=== PATIENT | female | born 1945 | race Caucasian/White ===

== ENCOUNTER 2018-06-11 23:43 | Inpatient (IN) ==
[2018-06-12] MEDS ORDERED: hydrALAZINE 20 MG/1 ML VIAL ONE (00:06)
[2018-06-12] MEDS ORDERED: LEVALBUTEROL 1.25 MG/3 ML NEB RESP TX STA (00:06)
[2018-06-12 00:38] LABS: Basophils # 0.1 10*3/uL (0.0-0.2); Basophils % 0.8 % (0.0-0.8); Eosinophils # 0.3 10*3/uL (0.0-0.87); Eosinophils % 2.5 % (0.00-10.9); Immature Granulocytes % 1.1 %; Immature Granulocytes Absolute 0.14 #; Lymphocytes # 2.8 10*3/uL (1.4-4.0); Lymphocytes % 21.6 % (21.3-54.2); Mean Corpuscular HGB Conc 31.7 GM/DL (32-36); Mean Corpuscular Hemoglobin 28 PG (27-34); Mean Corpuscular Volume 89.7 FL (87-102); Mean Platelet Volume 10.5 FL (9.6-12.0); Monocytes # 0.7 10*3/uL (0.11-0.8); Monocytes % 5.6 % (1.7-12.7); Neutrophils # 8.8 10*3/uL (1.4-7.4); Neutrophils % 68.4 % (38.7-73.9); Platelet Count 281 T/CUMM (130-400); Red Blood Count 4.57 MC/CUMM (3.8-5.5); White Blood Count 12.9 T/CUMM (4-12)
[2018-06-12 00:44] LABS: Alanine Aminotransferase 23 U/L (13-56); Albumin 3.5 G/DL (3.4-5.0); Alkaline Phosphatase 174 U/L (45-117); Aspartate Amino Transferase 20 U/L (0-37); Bilirubin,Total < 0.39 MG/DL (0.2-1.0); Blood Urea Nitrogen 15 MG/DL (7-18); Calcium 9.1 MG/DL (8.5-10.1); Glucose 113 MG/DL (74-106); Osmolality,Calculated 276.7 MOS/KG (273-304); Potassium 3.6 MMOL/L (3.5-5.1); Sodium 138 MMOL/L (136-145); Total Protein 8.2 G/DL (6.4-8.3); Troponin I < 0.015 NG/ML (0.00-0.045)
[2018-06-12] MEDS ORDERED: levETIRAcetam 500 MG/5 ML VIAL IV ONE (00:50)
[2018-06-12] MEDS ORDERED: hydrALAZINE 20 MG/1 ML VIAL IV STA (00:51)
[2018-06-12 01:01] LABS: Apearance,Urine CLEAR (Clear); Bilirubin,Urine Negative (Negative); Blood, Urine Negative (Negative); Glucose,Urine (UA) Negative (Negative); Hyaline Casts,Urine 1 /LPF (0-3); Ketones,Urine Negative (Negative); Nitrite,Urine Negative (Negative); Protein,Urine 100 MG/DL; RBC,Urine 1 /HPF (0-4); Squamous Epithelial Cell,Urine Occasional /HPF (0-10); Urine Color Straw (Yellow); Urine Specific Gravity 1.008 (1.001-1.035); Urine Urobilinogen < 2.0 EU/DL (0.2-1.0); WBC,Urine 3 /HPF (0-6)
[2018-06-12 01:05] LABS: Barbiturates Screen,Urine Negative (Negative); Benzodiazepines Screen,Urine Negative (Negative); Cannabinoid Screen,Urine Negative (Negative); Opiate Screen,Urine Negative (Negative); Phencyclidine Screen,Urine Negative (Negative)
[2018-06-12] MEDS ORDERED: methylPREDNISolone SOD SUC 40 MG/1 ML VIAL IV SCH (02:05)
[2018-06-12] MEDS ORDERED: ONDANSETRON 4 MG/2 ML VIAL IV PRN (02:05)
[2018-06-12] MEDS ORDERED: hydrALAZINE 20 MG/1 ML VIAL IV PRN (02:05)
[2018-06-12] MEDS ORDERED: ACETAMINOPHEN 325 MG TABLET PO PRN (02:05)
[2018-06-12] MEDS: SODIUM CHLORIDE 0.9% 1,000 ML IV SCH (03:22)
[2018-06-12] MEDS: ALBUTEROL/IPRATROPIUM 3 ML NEB RESP TX SCH ×6 (03:42→22:44)
[2018-06-12 04:29] LABS: Basophils # 0.1 10*3/uL (0.0-0.2); Basophils % 0.5 % (0.0-0.8); Eosinophils % 0.3 % (0.00-10.9); Hematocrit 36.1 VOL% (35.7-47.0); Hemoglobin 11.7 GM/DL (12.0-16.0); Immature Granulocytes % 0.4 %; Immature Granulocytes Absolute 0.05 #; Lymphocytes # 1.4 10*3/uL (1.4-4.0); Lymphocytes % 11.4 % (21.3-54.2); Mean Corpuscular HGB Conc 32.4 GM/DL (32-36); Mean Corpuscular Hemoglobin 28 PG (27-34); Mean Corpuscular Volume 87.6 FL (87-102); Mean Platelet Volume 10.2 FL (9.6-12.0); Monocytes # 0.3 10*3/uL (0.11-0.8); Monocytes % 2.7 % (1.7-12.7); Neutrophils # 10.5 10*3/uL (1.4-7.4); Neutrophils % 84.7 % (38.7-73.9); Platelet Count 253 T/CUMM (130-400); Red Blood Count 4.12 MC/CUMM (3.8-5.5); Red Cell Distribution Width 13.1 % (9.3-17.3); White Blood Count 12.4 T/CUMM (4-12)
[2018-06-12 04:59] LABS: Troponin I 0.027 NG/ML (0.00-0.045)
[2018-06-12 05:03] LABS: Albumin 3.1 G/DL (3.4-5.0); Bilirubin,Total 0.6 MG/DL (0.2-1.0); Calcium 8.8 MG/DL (8.5-10.1); Osmolality,Calculated 278.5 MOS/KG (273-304); Potassium 3.4 MMOL/L (3.5-5.1); Risk Ratio 3.26; Total Protein 7.1 G/DL (6.4-8.3); VLDL CHOLESTEROL 13.2 MG/DL
[2018-06-12] MEDS: ENOXAPARIN 40 MG/0.4 ML SYRINGE SUBCUT SCH (08:28)
[2018-06-12] MEDS: DOCUSATE SODIUM 100 MG CAPSULE PO SCH ×2 (08:28→22:20)
[2018-06-12] MEDS: PANTOPRAZOLE 40 MG TABLET PO SCH (08:28)
[2018-06-12] MEDS: SERTRALINE 100 MG TABLET PO SCH (08:55)
[2018-06-12] MEDS: MAGNESIUM CHLORIDE 64 MG TABLET PO SCH (08:56)
[2018-06-12] MEDS: levETIRAcetam 500 MG TABLET PO SCH ×2 (08:56→22:20)
[2018-06-12] MEDS: TOPIRAMATE 100 MG TABLET PO SCH ×2 (08:56→22:25)
[2018-06-12] MEDS: METOPROLOL TARTRATE 50 MG TABLET PO SCH ×2 (08:56→22:20)
[2018-06-12] MEDS: SIMVASTATIN 20 MG TABLET PO SCH (08:57)
[2018-06-12] MEDS: lamoTRIgine 100 MG TABLET PO SCH ×2 (08:57→22:20)
[2018-06-12] MEDS ORDERED: VALSARTAN 160 MG TABLET PO SCH (09:00)
[2018-06-12] MEDS ORDERED: traMADol 50 MG TABLET PO PRN (11:55)
[2018-06-12 13:05] LABS: Prolactin 21.6 NG/ML
[2018-06-12] MEDS: methylPREDNISolone SOD SUC 40 MG/1 ML VIAL IV SCH (15:26)
[2018-06-12] MEDS ORDERED: ARIPiprazole 10 MG TABLET PO SCH (21:00)
[2018-06-13] MEDS: ALBUTEROL/IPRATROPIUM 3 ML NEB RESP TX SCH ×3 (02:20→11:10)
[2018-06-13] MEDS: methylPREDNISolone SOD SUC 40 MG/1 ML VIAL IV SCH (02:41)
[2018-06-13] MEDS: SODIUM CHLORIDE 0.9% 1,000 ML IV SCH (02:41)
[2018-06-13 06:21] LABS: Basophils % 0.2 % (0.0-0.8); Eosinophils % 0.1 % (0.00-10.9); Hematocrit 35.7 VOL% (35.7-47.0); Hemoglobin 11.2 GM/DL (12.0-16.0); Immature Granulocytes % 0.6 %; Immature Granulocytes Absolute 0.05 #; Lymphocytes % 11.7 % (21.3-54.2); Mean Corpuscular HGB Conc 31.4 GM/DL (32-36); Mean Corpuscular Hemoglobin 28 PG (27-34); Mean Corpuscular Volume 90.4 FL (87-102); Mean Platelet Volume 10.5 FL (9.6-12.0); Monocytes # 0.3 10*3/uL (0.11-0.8); Monocytes % 3.1 % (1.7-12.7); Neutrophils # 7.2 10*3/uL (1.4-7.4); Neutrophils % 84.3 % (38.7-73.9); Platelet Count 235 T/CUMM (130-400); Red Blood Count 3.95 MC/CUMM (3.8-5.5); Red Cell Distribution Width 13.7 % (9.3-17.3); White Blood Count 8.5 T/CUMM (4-12)
[2018-06-13 06:39] LABS: Calcium 8.7 MG/DL (8.5-10.1); Osmolality,Calculated 281.5 MOS/KG (273-304)
[2018-06-13 08:05] VITALS: BP 143/62
[2018-06-13] MEDS ORDERED: IRBESARTAN 150 MG TABLET PO SCH (09:00)
[2018-06-13] MEDS ORDERED: LOSARTAN 50 MG TABLET PO SCH (09:00)
[2018-06-13] MEDS: SERTRALINE 100 MG TABLET PO SCH (09:20)
[2018-06-13] MEDS: MAGNESIUM CHLORIDE 64 MG TABLET PO SCH (09:20)
[2018-06-13] MEDS: levETIRAcetam 500 MG TABLET PO SCH (09:20)
[2018-06-13] MEDS: DOCUSATE SODIUM 100 MG CAPSULE PO SCH (09:20)
[2018-06-13] MEDS: lamoTRIgine 100 MG TABLET PO SCH (09:20)
[2018-06-13] MEDS: PANTOPRAZOLE 40 MG TABLET PO SCH (09:20)
[2018-06-13] MEDS: SIMVASTATIN 20 MG TABLET PO SCH (09:20)
[2018-06-13] MEDS: METOPROLOL TARTRATE 50 MG TABLET PO SCH (09:21)
[2018-06-13] MEDS: TOPIRAMATE 100 MG TABLET PO SCH (09:26)
[2018-06-13] MEDS: ENOXAPARIN 40 MG/0.4 ML SYRINGE SUBCUT SCH (09:29)
== END 2018-06-13 12:30 | disposition home health service (06) | DRG 101 ==
LOC: EDUNIT# → EDBD → N.ED 23:43 → N.EDINP 06-12 01:01 → N.TELEN 06-12 01:30
PROVIDERS: ADMIT Internal Medicine; ATTEND Internal Medicine

== ENCOUNTER 2018-09-03 16:28 | Observation (INO) ==
[2018-09-03] MEDS ORDERED: FUROSEMIDE 100 MG/10 ML VIAL IV STA (17:34)
[2018-09-03] MEDS ORDERED: ONDANSETRON 4 MG/2 ML VIAL IV STA (17:34)
[2018-09-03] MEDS ORDERED: methylPREDNISolone SOD SUC 125 MG/2 ML VIAL IV STA (17:34)
[2018-09-03] MEDS ORDERED: cefTRIAXone 1,000 MG in SODIUM CHLORIDE 0.9% 100 ML IV STA (17:34)
[2018-09-03 17:41] LABS: Basophils # 0.1 10*3/uL (0.0-0.2); Basophils % 0.9 % (0.0-0.8); Eosinophils # 0.4 10*3/uL (0.0-0.87); Eosinophils % 4.3 % (0.00-10.9); Hematocrit 39.6 VOL% (35.7-47.0); Hemoglobin 12.3 GM/DL (12.0-16.0); Immature Granulocytes % 0.3 %; Immature Granulocytes Absolute 0.03 #; Lymphocytes # 3.3 10*3/uL (1.4-4.0); Lymphocytes % 37.3 % (21.3-54.2); Mean Corpuscular HGB Conc 31.1 GM/DL (32-36); Mean Corpuscular Hemoglobin 28 PG (27-34); Mean Corpuscular Volume 89.4 FL (87-102); Mean Platelet Volume 10.3 FL (9.6-12.0); Monocytes # 0.6 10*3/uL (0.11-0.8); Monocytes % 6.7 % (1.7-12.7); Neutrophils # 4.4 10*3/uL (1.4-7.4); Neutrophils % 50.5 % (38.7-73.9); Platelet Count 257 T/CUMM (130-400); Red Blood Count 4.43 MC/CUMM (3.8-5.5); Red Cell Distribution Width 12.6 % (9.3-17.3); White Blood Count 8.8 T/CUMM (4-12)
[2018-09-03 17:56] LABS: PT Patient Result 10.4 SECS
[2018-09-03] MEDS ORDERED: ALBUTEROL 2.5 MG/3 ML NEB RESP TX SCH (18:00)
[2018-09-03 18:08] LABS: Albumin 3.3 G/DL (3.4-5.0); Bilirubin,Total 0.4 MG/DL (0.2-1.0); Calcium 8.3 MG/DL (8.5-10.1); Osmolality,Calculated 273.7 MOS/KG (273-304); Potassium 4.1 MMOL/L (3.5-5.1); Total Protein 6.9 G/DL (6.4-8.3)
[2018-09-03] MEDS ORDERED: HYDROmorphone 2 MG/1 ML VIAL IV PRN (20:46)
[2018-09-03] MEDS ORDERED: ACETAMINOPHEN 325 MG TABLET PO PRN (20:46)
[2018-09-03] MEDS ORDERED: ALBUTEROL 2.5 MG/3 ML NEB RESP TX PRN (20:46)
[2018-09-03] MEDS ORDERED: ONDANSETRON 4 MG/2 ML VIAL IV PRN (20:46)
[2018-09-03] MEDS ORDERED: SODIUM CHLORIDE 0.9% 1,000 ML IV SCH (20:46)
[2018-09-03] MEDS: ALBUTEROL/IPRATROPIUM 3 ML NEB RESP TX SCH ×2 (22:51→23:02)
[2018-09-04] MEDS: TOPIRAMATE 100 MG TABLET PO SCH ×3 (00:01→21:55)
[2018-09-04] MEDS: ARIPiprazole 10 MG TABLET PO SCH ×2 (00:01→21:55)
[2018-09-04] MEDS: METOPROLOL TARTRATE 50 MG TABLET PO SCH ×3 (00:02→21:55)
[2018-09-04] MEDS: DOCUSATE SODIUM 100 MG CAPSULE PO SCH ×3 (00:02→21:53)
[2018-09-04] MEDS: lamoTRIgine 100 MG TABLET PO SCH ×3 (00:03→21:54)
[2018-09-04] MEDS: levETIRAcetam 500 MG TABLET PO SCH ×3 (00:03→21:53)
[2018-09-04 00:36] LABS: Apearance,Urine CLEAR (Clear); Bilirubin,Urine Negative (Negative); Blood, Urine Negative (Negative); Glucose,Urine (UA) Negative (Negative); Ketones,Urine Negative (Negative); Mucus,Urine Occasional /LPF (Occasional); Nitrite,Urine Negative (Negative); Protein,Urine Negative; RBC,Urine <1 /HPF (0-4); Urine Color Colorless (Yellow); Urine Specific Gravity 1.005 (1.001-1.035); Urine Urobilinogen < 2.0 EU/DL (0.2-1.0); WBC,Urine <1 /HPF (0-6)
[2018-09-04] MEDS: methylPREDNISolone SOD SUC 40 MG/1 ML VIAL IV SCH ×3 (01:27→21:52)
[2018-09-04] MEDS: ALBUTEROL/IPRATROPIUM 3 ML NEB RESP TX SCH ×6 (03:15→23:01)
[2018-09-04 05:19] LABS: Basophils % 0.2 % (0.0-0.8); Eosinophils % 0.1 % (0.00-10.9); Immature Granulocytes % 0.4 %; Immature Granulocytes Absolute 0.03 #; Lymphocytes # 1.1 10*3/uL (1.4-4.0); Lymphocytes % 13.4 % (21.3-54.2); Mean Corpuscular HGB Conc 30.3 GM/DL (32-36); Mean Corpuscular Hemoglobin 28 PG (27-34); Mean Corpuscular Volume 92.6 FL (87-102); Mean Platelet Volume 11.8 FL (9.6-12.0); Monocytes % 0.2 % (1.7-12.7); Neutrophils # 7.1 10*3/uL (1.4-7.4); Neutrophils % 85.7 % (38.7-73.9); Platelet Count 210 T/CUMM (130-400); Red Blood Count 4.99 MC/CUMM (3.8-5.5); Red Cell Distribution Width 12.6 % (9.3-17.3); White Blood Count 8.3 T/CUMM (4-12)
[2018-09-04 05:37] LABS: Hematocrit 46.2 VOL% (35.7-47.0)
[2018-09-04 05:42] LABS: Hypochromasia 1+; Microcytosis Slight; Platelet Estimate Normal
[2018-09-04 05:43] LABS: Ovalocytes Slight
[2018-09-04] MEDS ORDERED: hydrALAZINE 20 MG/1 ML VIAL IV ONE (06:03)
[2018-09-04 06:04] LABS: Albumin 3.4 G/DL (3.4-5.0); Bilirubin,Total 0.6 MG/DL (0.2-1.0); Calcium 8.9 MG/DL (8.5-10.1); Osmolality,Calculated 272.1 MOS/KG (273-304); Potassium 4.6 MMOL/L (3.5-5.1); Total Protein 8.2 G/DL (6.4-8.3)
[2018-09-04] MEDS: MAGNESIUM CHLORIDE 64 MG TABLET PO SCH (08:15)
[2018-09-04] MEDS: PANTOPRAZOLE 40 MG TABLET PO SCH (08:15)
[2018-09-04] MEDS: SERTRALINE 100 MG TABLET PO SCH (08:15)
[2018-09-04] MEDS: cefTRIAXone 1,000 MG in SYRINGE 1 EACH IV SCH (09:23)
[2018-09-04] MEDS ORDERED: SIMVASTATIN 20 MG TABLET PO SCH (21:00)
[2018-09-05] MEDS: ALBUTEROL/IPRATROPIUM 3 ML NEB RESP TX SCH ×3 (03:24→11:00)
[2018-09-05 06:03] LABS: Basophils % 0.1 % (0.0-0.8); Hematocrit 36.3 VOL% (35.7-47.0); Immature Granulocytes % 0.5 %; Immature Granulocytes Absolute 0.06 #; Lymphocytes # 1.3 10*3/uL (1.4-4.0); Lymphocytes % 11.6 % (21.3-54.2); Mean Corpuscular HGB Conc 31.1 GM/DL (32-36); Mean Corpuscular Hemoglobin 28 PG (27-34); Mean Platelet Volume 10.6 FL (9.6-12.0); Monocytes # 0.3 10*3/uL (0.11-0.8); Monocytes % 2.7 % (1.7-12.7); Neutrophils # 9.6 10*3/uL (1.4-7.4); Neutrophils % 85.1 % (38.7-73.9); Platelet Count 241 T/CUMM (130-400); Red Cell Distribution Width 13.2 % (9.3-17.3)
[2018-09-05 06:05] LABS: Hemoglobin 11.3 GM/DL (12.0-16.0); Red Blood Count 3.99 MC/CUMM (3.8-5.5); White Blood Count 11.3 T/CUMM (4-12)
[2018-09-05 06:20] LABS: Calcium 8.2 MG/DL (8.5-10.1); Osmolality,Calculated 279.8 MOS/KG (273-304); Potassium 4.7 MMOL/L (3.5-5.1)
[2018-09-05 07:28] VITALS: BP 149/65
[2018-09-05] MEDS: MAGNESIUM CHLORIDE 64 MG TABLET PO SCH (08:26)
[2018-09-05] MEDS: levETIRAcetam 500 MG TABLET PO SCH (08:27)
[2018-09-05] MEDS: DOCUSATE SODIUM 100 MG CAPSULE PO SCH (08:27)
[2018-09-05] MEDS: TOPIRAMATE 100 MG TABLET PO SCH (08:27)
[2018-09-05] MEDS: lamoTRIgine 100 MG TABLET PO SCH (08:28)
[2018-09-05] MEDS: SERTRALINE 100 MG TABLET PO SCH (08:29)
[2018-09-05] MEDS: PANTOPRAZOLE 40 MG TABLET PO SCH (08:29)
[2018-09-05] MEDS: methylPREDNISolone SOD SUC 40 MG/1 ML VIAL IV SCH (08:29)
[2018-09-05] MEDS: cefTRIAXone 1,000 MG in SYRINGE 1 EACH IV SCH (08:31)
[2018-09-05] MEDS: METOPROLOL TARTRATE 50 MG TABLET PO SCH (08:32)
== END 2018-09-05 11:15 | disposition home health service (06) ==
LOC: N.EDINP 16:28 → N.ED 16:28 → N.2E 19:42
PROVIDERS: ADMIT Internal Medicine; ATTEND Internal Medicine

== ENCOUNTER 2018-10-19 12:45 | Inpatient (IN) ==
[2018-10-19] MEDS ORDERED: AMMONIA INHALANT 1 EACH AMP INH ONE (13:03)
[2018-10-19] MEDS ORDERED: SODIUM CHLORIDE 0.9% 1,000 ML IV STA (13:07)
[2018-10-19 13:56] LABS: Apearance,Urine CLEAR (Clear); Bilirubin,Urine Negative (Negative); Blood, Urine Negative (Negative); Glucose,Urine (UA) Negative (Negative); Ketones,Urine Negative (Negative); Mucus,Urine Occasional /LPF (Occasional); Nitrite,Urine Negative (Negative); Protein,Urine Negative; RBC,Urine <1 /HPF (0-4); Urine Color Yellow (Yellow); Urine Specific Gravity 1.014 (1.001-1.035); Urine Urobilinogen < 2.0 EU/DL (0.2-1.0)
[2018-10-19 13:57] LABS: Basophils % 0.3 % (0.0-0.8); Eosinophils % 0.1 % (0.00-10.9); Hemoglobin 12.5 GM/DL (12.0-16.0); Immature Granulocytes % 0.4 %; Immature Granulocytes Absolute 0.03 #; Lymphocytes # 1.7 10*3/uL (1.4-4.0); Lymphocytes % 21.4 % (21.3-54.2); Mean Corpuscular HGB Conc 30.5 GM/DL (32-36); Mean Corpuscular Volume 92.8 FL (87-102); Mean Platelet Volume 11.2 FL (9.6-12.0); Monocytes % 2.6 % (1.7-12.7); Neutrophils % 75.2 % (38.7-73.9); Platelet Count 244 T/CUMM (130-400); Red Blood Count 4.42 MC/CUMM (3.8-5.5); Red Cell Distribution Width 13.1 % (9.3-17.3)
[2018-10-19 14:42] LABS: Alanine Aminotransferase 37 U/L (13-56); Albumin 3.4 G/DL (3.4-5.0); Alkaline Phosphatase 161 U/L (45-117); Aspartate Amino Transferase 31 U/L (0-37); Bilirubin,Total < 0.39 MG/DL (0.2-1.0); Blood Urea Nitrogen 28 MG/DL (7-18); Calcium 8.7 MG/DL (8.5-10.1); Glucose 121 MG/DL (74-106); Osmolality,Calculated 272.4 MOS/KG (273-304); Total Protein 7.6 G/DL (6.4-8.3)
[2018-10-19] MEDS ORDERED: ONDANSETRON 4 MG/2 ML VIAL IV PRN (15:30)
[2018-10-19] MEDS: SODIUM CHLORIDE 0.9% 1,000 ML IV SCH ×2 (18:21→23:54)
[2018-10-19] MEDS ORDERED: ALBUTEROL/IPRATROPIUM 3 ML NEB RESP TX PRN (18:28)
[2018-10-19] MEDS: cloNIDine 0.1 MG/24 HR PATCH TRANSDERM SCH (19:00)
[2018-10-19] MEDS: DOCUSATE SODIUM 100 MG CAPSULE PO SCH (21:27)
[2018-10-20] MEDS: SODIUM CHLORIDE 0.9% 1,000 ML IV SCH ×2 (02:32→10:27)
[2018-10-20] MEDS: hydrALAZINE 20 MG/1 ML VIAL IV PRN (04:47)
[2018-10-20] MEDS ORDERED: HALOPERIDOL 5 MG/ML AMP IM ONE (05:35)
[2018-10-20 06:37] LABS: Calcium 8.3 MG/DL (8.5-10.1); Osmolality,Calculated 283.3 MOS/KG (273-304)
[2018-10-20] MEDS ORDERED: ALBUTEROL 2.5 MG/3 ML NEB RESP TX PRN (08:59)
[2018-10-20] MEDS: DOCUSATE SODIUM 100 MG CAPSULE PO SCH ×2 (10:28→21:19)
[2018-10-20] MEDS: SIMVASTATIN 20 MG TABLET PO SCH (10:28)
[2018-10-20] MEDS: SERTRALINE 100 MG TABLET PO SCH (10:28)
[2018-10-20] MEDS: METOPROLOL TARTRATE 50 MG TABLET PO SCH ×2 (10:29→21:19)
[2018-10-20] MEDS: MAGNESIUM CHLORIDE 64 MG TABLET PO SCH (10:29)
[2018-10-20] MEDS: PANTOPRAZOLE 40 MG TABLET PO SCH (10:29)
[2018-10-20] MEDS: lamoTRIgine 100 MG TABLET PO SCH ×2 (10:29→21:19)
[2018-10-20] MEDS: TOPIRAMATE 100 MG TABLET PO SCH ×2 (10:29→21:19)
[2018-10-20] MEDS: SODIUM CHLORIDE 0.45% 1,000 ML IV SCH (10:30)
[2018-10-20] MEDS: methylPREDNISolone SOD SUC 40 MG/1 ML VIAL IV SCH ×3 (10:30→21:20)
[2018-10-20] MEDS: ALBUTEROL/IPRATROPIUM 3 ML NEB RESP TX SCH ×3 (10:50→19:44)
[2018-10-20] MEDS: NYSTATIN 500,000 UNIT/5 ML UDCUP SWISH/SWAL SCH ×2 (18:21→21:20)
[2018-10-20] MEDS ORDERED: SODIUM PHOSPHATE ENEMA 133 ML BOTTLE RECTAL ONE (20:01)
[2018-10-20] MEDS ORDERED: LACTULOSE 20 GM/30 ML UDCUP PO ONE (20:02)
[2018-10-20] MEDS: ARIPiprazole 10 MG TABLET PO SCH (21:19)
[2018-10-21] MEDS: SODIUM CHLORIDE 0.45% 1,000 ML IV SCH ×2 (00:03→13:54)
[2018-10-21] MEDS: ALBUTEROL/IPRATROPIUM 3 ML NEB RESP TX SCH ×6 (00:19→19:24)
[2018-10-21] MEDS: methylPREDNISolone SOD SUC 40 MG/1 ML VIAL IV SCH ×4 (03:14→21:28)
[2018-10-21 04:49] LABS: Calcium 8.1 MG/DL (8.5-10.1); Osmolality,Calculated 284.4 MOS/KG (273-304)
[2018-10-21 04:52] LABS: Hematocrit 35.2 VOL% (35.7-47.0); Hemoglobin 10.8 GM/DL (12.0-16.0); Immature Granulocytes % 0.5 %; Immature Granulocytes Absolute 0.04 #; Lymphocytes # 1.1 10*3/uL (1.4-4.0); Lymphocytes % 14.7 % (21.3-54.2); Mean Corpuscular HGB Conc 30.7 GM/DL (32-36); Mean Corpuscular Volume 93.1 FL (87-102); Mean Platelet Volume 10.9 FL (9.6-12.0); Monocytes % 1.7 % (1.7-12.7); Neutrophils % 83.1 % (38.7-73.9); Platelet Count 233 T/CUMM (130-400); Red Blood Count 3.78 MC/CUMM (3.8-5.5); Red Cell Distribution Width 13.3 % (9.3-17.3); White Blood Count 7.7 T/CUMM (4-12)
[2018-10-21] MEDS ORDERED: cefTRIAXone 1,000 MG in SYRINGE 1 EACH IV SCH (08:30)
[2018-10-21] MEDS: SIMVASTATIN 20 MG TABLET PO SCH ×2 (09:21→09:40)
[2018-10-21] MEDS: lamoTRIgine 100 MG TABLET PO SCH ×3 (09:21→21:27)
[2018-10-21] MEDS: METOPROLOL TARTRATE 50 MG TABLET PO SCH ×3 (09:21→21:27)
[2018-10-21] MEDS: SERTRALINE 100 MG TABLET PO SCH ×2 (09:21→09:40)
[2018-10-21] MEDS: TOPIRAMATE 100 MG TABLET PO SCH ×3 (09:21→21:27)
[2018-10-21] MEDS: DOCUSATE SODIUM 100 MG CAPSULE PO SCH ×3 (09:21→21:27)
[2018-10-21] MEDS: NYSTATIN 500,000 UNIT/5 ML UDCUP SWISH/SWAL SCH ×5 (09:22→21:27)
[2018-10-21] MEDS: PANTOPRAZOLE 40 MG TABLET PO SCH ×2 (09:22→09:40)
[2018-10-21] MEDS: MAGNESIUM CHLORIDE 64 MG TABLET PO SCH ×2 (09:22→09:40)
[2018-10-21 13:37] LABS: Apearance,Urine CLEAR (Clear); Bacteria,Urine Occasional /HPF (Few); Bilirubin,Urine Negative (Negative); Blood, Urine Negative (Negative); Glucose,Urine (UA) Negative (Negative); Ketones,Urine Negative (Negative); Mucus,Urine Occasional /LPF (Occasional); Nitrite,Urine Negative (Negative); Protein,Urine Negative; RBC,Urine 1 /HPF (0-4); Urine Color Straw (Yellow); Urine Specific Gravity 1.012 (1.001-1.035); Urine Urobilinogen < 2.0 EU/DL (0.2-1.0); WBC,Urine <1 /HPF (0-6)
[2018-10-21] MEDS: ARIPiprazole 10 MG TABLET PO SCH (21:27)
[2018-10-21] MEDS: HALOPERIDOL 5 MG/ML AMP IV PRN (21:27)
[2018-10-22] MEDS: ALBUTEROL/IPRATROPIUM 3 ML NEB RESP TX SCH ×7 (00:57→23:54)
[2018-10-22] MEDS: methylPREDNISolone SOD SUC 40 MG/1 ML VIAL IV SCH ×4 (03:17→20:00)
[2018-10-22] MEDS: SODIUM CHLORIDE 0.45% 1,000 ML IV SCH (03:17)
[2018-10-22 05:27] LABS: Hematocrit 34.5 VOL% (35.7-47.0); Hemoglobin 10.5 GM/DL (12.0-16.0); Immature Granulocytes % 0.6 %; Immature Granulocytes Absolute 0.05 #; Lymphocytes # 0.6 10*3/uL (1.4-4.0); Lymphocytes % 6.7 % (21.3-54.2); Mean Corpuscular HGB Conc 30.4 GM/DL (32-36); Mean Corpuscular Volume 92.5 FL (87-102); Mean Platelet Volume 10.9 FL (9.6-12.0); Monocytes % 2.3 % (1.7-12.7); Neutrophils % 90.4 % (38.7-73.9); Platelet Count 214 T/CUMM (130-400); Red Blood Count 3.73 MC/CUMM (3.8-5.5); Red Cell Distribution Width 13.3 % (9.3-17.3); White Blood Count 8.4 T/CUMM (4-12)
[2018-10-22 06:03] LABS: Calcium 8.1 MG/DL (8.5-10.1); Osmolality,Calculated 282.5 MOS/KG (273-304)
[2018-10-22 08:34] LABS: INR 1.1; PT Patient Result 11.7 SECS
[2018-10-22] MEDS ORDERED: HALOPERIDOL 5 MG/ML AMP IM ONE (08:44)
[2018-10-22] MEDS ORDERED: LORazepam 2 MG/1 ML VIAL IM ONE (08:44)
[2018-10-22 10:09] LABS: Apearance,Urine CLEAR (Clear); Bilirubin,Urine Negative (Negative); Blood, Urine Moderate mg/dL (Negative); Glucose,Urine (UA) Negative (Negative); Ketones,Urine Negative (Negative); Mucus,Urine Occasional /LPF (Occasional); Nitrite,Urine Negative (Negative); Protein,Urine Negative; RBC,Urine 8 /HPF (0-4); Squamous Epithelial Cell,Urine Occasional /HPF (0-10); Urine Color Straw (Yellow); Urine Specific Gravity 1.012 (1.001-1.035); Urine Urobilinogen < 2.0 EU/DL (0.2-1.0); WBC,Urine 1 /HPF (0-6)
[2018-10-22] MEDS ORDERED: DEXTROSE 50% 25 GM/50 ML SYRINGE IV PRN (10:29)
[2018-10-22] MEDS ORDERED: GLUCAGON 1 MG VIAL IM PRN (10:29)
[2018-10-22] MEDS: AZITHROMYCIN INJ 500 MG in SODIUM CHLORIDE 0.9% 250 ML IV SCH (10:34)
[2018-10-22] MEDS ORDERED: FUROSEMIDE 40 MG/4 ML VIAL IV ONE (10:51)
[2018-10-22] MEDS: INSULIN REGULAR 100 UNIT/ML SUBCUT SCH ×2 (11:47→17:10)
[2018-10-22] MEDS: HALOPERIDOL 5 MG/ML AMP IV PRN ×2 (11:49→20:02)
[2018-10-22] MEDS: TOPIRAMATE 100 MG TABLET PO SCH ×2 (13:04→20:01)
[2018-10-22] MEDS: SIMVASTATIN 20 MG TABLET PO SCH (13:04)
[2018-10-22] MEDS: SERTRALINE 100 MG TABLET PO SCH (13:05)
[2018-10-22] MEDS: lamoTRIgine 100 MG TABLET PO SCH ×2 (13:05→20:00)
[2018-10-22] MEDS: METOPROLOL TARTRATE 50 MG TABLET PO SCH ×2 (13:05→20:00)
[2018-10-22] MEDS: MAGNESIUM CHLORIDE 64 MG TABLET PO SCH (13:05)
[2018-10-22] MEDS: DOCUSATE SODIUM 100 MG CAPSULE PO SCH ×2 (13:05→20:00)
[2018-10-22] MEDS: PANTOPRAZOLE 40 MG TABLET PO SCH (13:05)
[2018-10-22] MEDS: NYSTATIN 500,000 UNIT/5 ML UDCUP SWISH/SWAL SCH ×4 (13:06→20:00)
[2018-10-22] MEDS ORDERED: ALBUTEROL/IPRATROPIUM 3 ML NEB RESP TX PRN (16:16)
[2018-10-22] MEDS: LORazepam 2 MG/1 ML VIAL IV PRN ×2 (16:19→20:01)
[2018-10-22] MEDS: CLINDAMYCIN INJ 600 MG in PREMIX 1 EACH IV SCH (16:35)
[2018-10-22] MEDS: NICOTINE 21 MG/24 HR PATCH TRANSDERM SCH (16:35)
[2018-10-22] MEDS: VANCOMYCIN INJ 1,000 MG in SODIUM CHLORIDE 0.9% 250 ML IV SCH (17:33)
[2018-10-22] MEDS: ARIPiprazole 10 MG TABLET PO SCH (20:00)
[2018-10-23] MEDS: INSULIN REGULAR 100 UNIT/ML SUBCUT SCH ×4 (00:15→17:33)
[2018-10-23] MEDS: CLINDAMYCIN INJ 600 MG in PREMIX 1 EACH IV SCH ×3 (00:16→16:01)
[2018-10-23] MEDS: methylPREDNISolone SOD SUC 40 MG/1 ML VIAL IV SCH ×4 (03:14→20:33)
[2018-10-23] MEDS: ALBUTEROL/IPRATROPIUM 3 ML NEB RESP TX SCH ×6 (03:45→22:14)
[2018-10-23 04:43] LABS: Hematocrit 32.5 VOL% (35.7-47.0); Immature Granulocytes % 0.3 %; Immature Granulocytes Absolute 0.02 #; Lymphocytes # 0.7 10*3/uL (1.4-4.0); Lymphocytes % 9.3 % (21.3-54.2); Mean Corpuscular HGB Conc 30.8 GM/DL (32-36); Mean Corpuscular Volume 91.3 FL (87-102); Mean Platelet Volume 11.1 FL (9.6-12.0); Monocytes % 7.9 % (1.7-12.7); Neutrophils % 82.5 % (38.7-73.9); Platelet Count 195 T/CUMM (130-400); Red Blood Count 3.56 MC/CUMM (3.8-5.5); Red Cell Distribution Width 13.3 % (9.3-17.3); White Blood Count 7.6 T/CUMM (4-12)
[2018-10-23 05:22] LABS: Calcium 8.2 MG/DL (8.5-10.1); Osmolality,Calculated 282.5 MOS/KG (273-304)
[2018-10-23 05:36] LABS: Hypochromasia 1+; Microcytosis Slight
[2018-10-23 05:37] LABS: Ovalocytes Slight; Platelet Estimate Adequate
[2018-10-23] MEDS: TOPIRAMATE 100 MG TABLET PO SCH ×2 (08:23→20:33)
[2018-10-23] MEDS: SERTRALINE 100 MG TABLET PO SCH (08:23)
[2018-10-23] MEDS: MAGNESIUM CHLORIDE 64 MG TABLET PO SCH (08:23)
[2018-10-23] MEDS: PANTOPRAZOLE 40 MG TABLET PO SCH (08:23)
[2018-10-23] MEDS: lamoTRIgine 100 MG TABLET PO SCH ×2 (08:24→20:32)
[2018-10-23] MEDS: DOCUSATE SODIUM 100 MG CAPSULE PO SCH ×2 (08:24→20:32)
[2018-10-23] MEDS: METOPROLOL TARTRATE 50 MG TABLET PO SCH ×2 (08:24→20:32)
[2018-10-23] MEDS: SIMVASTATIN 20 MG TABLET PO SCH (08:24)
[2018-10-23] MEDS: NYSTATIN 500,000 UNIT/5 ML UDCUP SWISH/SWAL SCH ×4 (08:27→20:33)
[2018-10-23] MEDS: NICOTINE 21 MG/24 HR PATCH TRANSDERM SCH (08:33)
[2018-10-23] MEDS: FUROSEMIDE 20 MG/2 ML VIAL IV SCH (09:08)
[2018-10-23] MEDS: AZITHROMYCIN INJ 500 MG in SODIUM CHLORIDE 0.9% 250 ML IV SCH (09:08)
[2018-10-23] MEDS: LORazepam 2 MG/1 ML VIAL IV PRN ×2 (09:09→20:00)
[2018-10-23 11:12] LABS: Appearance,CSF Clear; Red Blood Cell,CSF < 1 C/CUMM; White Blood Cell,CSF 12 C/CUMM
[2018-10-23 11:13] LABS: Lymphocytes,CSF 93 %; Monocytes,CSF 7 %
[2018-10-23] MEDS: VANCOMYCIN INJ 1,000 MG in SODIUM CHLORIDE 0.9% 250 ML IV SCH (17:33)
[2018-10-23] MEDS: ARIPiprazole 10 MG TABLET PO SCH (20:32)
[2018-10-24] MEDS: INSULIN REGULAR 100 UNIT/ML SUBCUT SCH ×4 (00:32→18:42)
[2018-10-24] MEDS: CLINDAMYCIN INJ 600 MG in PREMIX 1 EACH IV SCH ×3 (02:58→16:15)
[2018-10-24] MEDS: LORazepam 2 MG/1 ML VIAL IV PRN ×2 (02:59→09:04)
[2018-10-24] MEDS: methylPREDNISolone SOD SUC 40 MG/1 ML VIAL IV SCH ×4 (02:59→20:38)
[2018-10-24] MEDS: ALBUTEROL/IPRATROPIUM 3 ML NEB RESP TX SCH ×7 (04:10→23:50)
[2018-10-24 04:29] LABS: Calcium 7.9 MG/DL (8.5-10.1); Hematocrit 33.9 VOL% (35.7-47.0); Hemoglobin 10.3 GM/DL (12.0-16.0); Immature Granulocytes % 0.5 %; Immature Granulocytes Absolute 0.03 #; Lymphocytes # 0.7 10*3/uL (1.4-4.0); Lymphocytes % 12.4 % (21.3-54.2); Mean Corpuscular HGB Conc 30.4 GM/DL (32-36); Mean Corpuscular Volume 91.9 FL (87-102); Mean Platelet Volume 10.8 FL (9.6-12.0); Monocytes % 4.3 % (1.7-12.7); Neutrophils % 82.8 % (38.7-73.9); Osmolality,Calculated 290.3 MOS/KG (273-304); Platelet Count 201 T/CUMM (130-400); Red Blood Count 3.69 MC/CUMM (3.8-5.5); Red Cell Distribution Width 13.4 % (9.3-17.3); White Blood Count 5.9 T/CUMM (4-12)
[2018-10-24] MEDS: AZITHROMYCIN INJ 500 MG in SODIUM CHLORIDE 0.9% 250 ML IV SCH (08:49)
[2018-10-24] MEDS: NICOTINE 21 MG/24 HR PATCH TRANSDERM SCH (08:49)
[2018-10-24] MEDS: DOCUSATE SODIUM 100 MG CAPSULE PO SCH ×2 (08:49→20:37)
[2018-10-24] MEDS: lamoTRIgine 100 MG TABLET PO SCH ×2 (08:49→20:37)
[2018-10-24] MEDS: MAGNESIUM CHLORIDE 64 MG TABLET PO SCH (08:49)
[2018-10-24] MEDS: PANTOPRAZOLE 40 MG TABLET PO SCH (08:50)
[2018-10-24] MEDS: METOPROLOL TARTRATE 50 MG TABLET PO SCH ×2 (08:50→20:38)
[2018-10-24] MEDS: TOPIRAMATE 100 MG TABLET PO SCH ×2 (08:50→20:38)
[2018-10-24] MEDS: SIMVASTATIN 20 MG TABLET PO SCH (08:50)
[2018-10-24] MEDS: FUROSEMIDE 20 MG/2 ML VIAL IV SCH (08:52)
[2018-10-24] MEDS: SERTRALINE 100 MG TABLET PO SCH (09:04)
[2018-10-24] MEDS: QUEtiapine 25 MG TABLET PO SCH ×2 (09:04→20:38)
[2018-10-24] MEDS: POTASSIUM CHLORIDE 20 MEQ TABLET PO PRN ×4 (09:04→18:41)
[2018-10-24] MEDS: NYSTATIN 500,000 UNIT/5 ML UDCUP SWISH/SWAL SCH ×4 (09:43→20:38)
[2018-10-24] MEDS: VANCOMYCIN INJ 1,000 MG in SODIUM CHLORIDE 0.9% 250 ML IV SCH (18:01)
[2018-10-24] MEDS: ARIPiprazole 10 MG TABLET PO SCH (20:37)
[2018-10-25] MEDS: INSULIN REGULAR 100 UNIT/ML SUBCUT SCH ×4 (00:44→17:07)
[2018-10-25] MEDS: CLINDAMYCIN INJ 600 MG in PREMIX 1 EACH IV SCH ×3 (00:44→17:12)
[2018-10-25] MEDS: HALOPERIDOL 5 MG/ML AMP IV PRN (00:46)
[2018-10-25] MEDS: methylPREDNISolone SOD SUC 40 MG/1 ML VIAL IV SCH ×4 (03:18→20:18)
[2018-10-25] MEDS: LORazepam 2 MG/1 ML VIAL IV PRN (03:25)
[2018-10-25] MEDS: ALBUTEROL/IPRATROPIUM 3 ML NEB RESP TX SCH ×6 (03:49→22:37)
[2018-10-25 04:05] LABS: Basophils % 0.1 % (0.0-0.8); Hemoglobin 10.8 GM/DL (12.0-16.0); Immature Granulocytes % 0.5 %; Immature Granulocytes Absolute 0.05 #; Lymphocytes # 0.8 10*3/uL (1.4-4.0); Lymphocytes % 7.5 % (21.3-54.2); Mean Corpuscular HGB Conc 30.9 GM/DL (32-36); Mean Corpuscular Volume 91.6 FL (87-102); Mean Platelet Volume 11.1 FL (9.6-12.0); Monocytes % 5.3 % (1.7-12.7); Neutrophils % 86.6 % (38.7-73.9); Platelet Count 211 T/CUMM (130-400); Red Blood Count 3.82 MC/CUMM (3.8-5.5); Red Cell Distribution Width 13.6 % (9.3-17.3); White Blood Count 10.2 T/CUMM (4-12)
[2018-10-25 04:23] LABS: Calcium 7.9 MG/DL (8.5-10.1); Osmolality,Calculated 290.1 MOS/KG (273-304)
[2018-10-25] MEDS: NYSTATIN 500,000 UNIT/5 ML UDCUP SWISH/SWAL SCH ×4 (09:47→20:17)
[2018-10-25] MEDS: FUROSEMIDE 20 MG/2 ML VIAL IV SCH (09:48)
[2018-10-25] MEDS: DOCUSATE SODIUM 100 MG CAPSULE PO SCH ×2 (09:49→20:17)
[2018-10-25] MEDS: lamoTRIgine 100 MG TABLET PO SCH ×2 (09:49→20:17)
[2018-10-25] MEDS: MAGNESIUM CHLORIDE 64 MG TABLET PO SCH (09:49)
[2018-10-25] MEDS: METOPROLOL TARTRATE 50 MG TABLET PO SCH ×2 (09:49→20:17)
[2018-10-25] MEDS: PANTOPRAZOLE 40 MG TABLET PO SCH (09:50)
[2018-10-25] MEDS: QUEtiapine 25 MG TABLET PO SCH ×2 (09:50→20:18)
[2018-10-25] MEDS: TOPIRAMATE 100 MG TABLET PO SCH ×2 (09:51→20:18)
[2018-10-25] MEDS: SIMVASTATIN 20 MG TABLET PO SCH (09:51)
[2018-10-25] MEDS: SERTRALINE 100 MG TABLET PO SCH (09:51)
[2018-10-25] MEDS: NICOTINE 21 MG/24 HR PATCH TRANSDERM SCH (10:06)
[2018-10-25] MEDS: AZITHROMYCIN INJ 500 MG in SODIUM CHLORIDE 0.9% 250 ML IV SCH (10:25)
[2018-10-25] MEDS: VANCOMYCIN INJ 1,000 MG in SODIUM CHLORIDE 0.9% 250 ML IV SCH (18:21)
[2018-10-25] MEDS: ARIPiprazole 10 MG TABLET PO SCH (20:17)
[2018-10-26] MEDS: INSULIN REGULAR 100 UNIT/ML SUBCUT SCH ×4 (01:47→18:14)
[2018-10-26] MEDS: CLINDAMYCIN INJ 600 MG in PREMIX 1 EACH IV SCH ×3 (01:56→16:59)
[2018-10-26] MEDS: ALBUTEROL/IPRATROPIUM 3 ML NEB RESP TX SCH ×6 (02:11→23:33)
[2018-10-26] MEDS: methylPREDNISolone SOD SUC 40 MG/1 ML VIAL IV SCH ×4 (03:10→20:41)
[2018-10-26 05:13] LABS: Calcium 7.7 MG/DL (8.5-10.1); Osmolality,Calculated 292.1 MOS/KG (273-304)
[2018-10-26 05:19] LABS: Basophils % 0.1 % (0.0-0.8); Hematocrit 35.7 VOL% (35.7-47.0); Immature Granulocytes % 0.7 %; Immature Granulocytes Absolute 0.08 #; Lymphocytes # 0.8 10*3/uL (1.4-4.0); Lymphocytes % 7.3 % (21.3-54.2); Mean Corpuscular HGB Conc 30.8 GM/DL (32-36); Mean Platelet Volume 11.3 FL (9.6-12.0); Monocytes % 4.8 % (1.7-12.7); NRBC # 0.02 10*3/uL; Neutrophils % 87.1 % (38.7-73.9); Platelet Count 236 T/CUMM (130-400); Red Blood Count 3.84 MC/CUMM (3.8-5.5); Red Cell Distribution Width 14.1 % (9.3-17.3); White Blood Count 11.2 T/CUMM (4-12)
[2018-10-26] MEDS: hydrALAZINE 20 MG/1 ML VIAL IV PRN ×2 (06:34→16:48)
[2018-10-26] MEDS: LORazepam 2 MG/1 ML VIAL IV PRN ×3 (09:02→20:48)
[2018-10-26] MEDS: NICOTINE 21 MG/24 HR PATCH TRANSDERM SCH (09:05)
[2018-10-26] MEDS: FUROSEMIDE 20 MG/2 ML VIAL IV SCH (09:05)
[2018-10-26] MEDS: lamoTRIgine 100 MG TABLET PO SCH ×2 (09:06→20:40)
[2018-10-26] MEDS: QUEtiapine 25 MG TABLET PO SCH ×2 (09:06→20:41)
[2018-10-26] MEDS: TOPIRAMATE 100 MG TABLET PO SCH ×2 (09:06→20:41)
[2018-10-26] MEDS: SIMVASTATIN 20 MG TABLET PO SCH (09:06)
[2018-10-26] MEDS: DOCUSATE SODIUM 100 MG CAPSULE PO SCH ×2 (09:06→20:40)
[2018-10-26] MEDS: SERTRALINE 100 MG TABLET PO SCH (09:06)
[2018-10-26] MEDS: cloNIDine 0.1 MG/24 HR PATCH TRANSDERM SCH (09:06)
[2018-10-26] MEDS: METOPROLOL TARTRATE 50 MG TABLET PO SCH ×2 (09:06→20:40)
[2018-10-26] MEDS: PANTOPRAZOLE 40 MG TABLET PO SCH (09:06)
[2018-10-26] MEDS: NYSTATIN 500,000 UNIT/5 ML UDCUP SWISH/SWAL SCH ×4 (09:19→20:47)
[2018-10-26] MEDS: MAGNESIUM CHLORIDE 64 MG TABLET PO SCH (09:19)
[2018-10-26] MEDS: AZITHROMYCIN INJ 500 MG in SODIUM CHLORIDE 0.9% 250 ML IV SCH (09:40)
[2018-10-26] MEDS: HALOPERIDOL 5 MG/ML AMP IV PRN ×2 (11:38→17:06)
[2018-10-26] MEDS: VANCOMYCIN INJ 1,000 MG in SODIUM CHLORIDE 0.9% 250 ML IV SCH (17:50)
[2018-10-26] MEDS: ARIPiprazole 10 MG TABLET PO SCH (20:41)
[2018-10-27] MEDS: INSULIN REGULAR 100 UNIT/ML SUBCUT SCH ×4 (00:53→17:31)
[2018-10-27] MEDS: CLINDAMYCIN INJ 600 MG in PREMIX 1 EACH IV SCH (00:53)
[2018-10-27] MEDS: HALOPERIDOL 5 MG/ML AMP IV PRN (02:31)
[2018-10-27] MEDS: methylPREDNISolone SOD SUC 40 MG/1 ML VIAL IV SCH ×3 (02:32→17:42)
[2018-10-27] MEDS: ALBUTEROL/IPRATROPIUM 3 ML NEB RESP TX SCH ×5 (03:10→19:13)
[2018-10-27 04:44] LABS: Basophils % 0.2 % (0.0-0.8); Hematocrit 36.5 VOL% (35.7-47.0); Immature Granulocytes % 1.1 %; Lymphocytes # 0.7 10*3/uL (1.4-4.0); Mean Corpuscular HGB Conc 30.1 GM/DL (32-36); Mean Corpuscular Volume 94.3 FL (87-102); Mean Platelet Volume 11.2 FL (9.6-12.0); Monocytes % 3.3 % (1.7-12.7); Neutrophils % 88.4 % (38.7-73.9); Platelet Count 211 T/CUMM (130-400); Red Blood Count 3.87 MC/CUMM (3.8-5.5); Red Cell Distribution Width 14.2 % (9.3-17.3); White Blood Count 9.5 T/CUMM (4-12)
[2018-10-27 05:08] LABS: Calcium 7.6 MG/DL (8.5-10.1); Osmolality,Calculated 292.3 MOS/KG (273-304)
[2018-10-27 05:14] LABS: Prealbumin 24.4 MG/DL (20-40)
[2018-10-27] MEDS: SERTRALINE 100 MG TABLET PO SCH (08:20)
[2018-10-27] MEDS: lamoTRIgine 100 MG TABLET PO SCH ×2 (08:20→20:15)
[2018-10-27] MEDS: DOCUSATE SODIUM 100 MG CAPSULE PO SCH ×2 (08:20→20:15)
[2018-10-27] MEDS: FUROSEMIDE 20 MG/2 ML VIAL IV SCH (08:20)
[2018-10-27] MEDS: SIMVASTATIN 20 MG TABLET PO SCH (08:20)
[2018-10-27] MEDS: NYSTATIN 500,000 UNIT/5 ML UDCUP SWISH/SWAL SCH ×4 (08:20→20:15)
[2018-10-27] MEDS: TOPIRAMATE 100 MG TABLET PO SCH ×2 (08:20→20:15)
[2018-10-27] MEDS: PANTOPRAZOLE 40 MG TABLET PO SCH (08:20)
[2018-10-27] MEDS: QUEtiapine 25 MG TABLET PO SCH ×2 (08:20→20:15)
[2018-10-27] MEDS: NICOTINE 21 MG/24 HR PATCH TRANSDERM SCH (08:20)
[2018-10-27] MEDS ORDERED: QUEtiapine 25 MG TABLET PO SCH (09:00)
[2018-10-27] MEDS: METOPROLOL TARTRATE 50 MG TABLET PO SCH ×2 (09:02→20:15)
[2018-10-27] MEDS: MAGNESIUM CHLORIDE 64 MG TABLET PO SCH (09:07)
[2018-10-27] MEDS: AZITHROMYCIN INJ 500 MG in SODIUM CHLORIDE 0.9% 250 ML IV SCH (09:12)
[2018-10-27] MEDS: LORazepam 2 MG/1 ML VIAL IV PRN ×2 (10:21→14:20)
[2018-10-27] MEDS: VANCOMYCIN INJ 1,000 MG in SODIUM CHLORIDE 0.9% 250 ML IV SCH (17:42)
[2018-10-27] MEDS: ARIPiprazole 10 MG TABLET PO SCH (20:15)
[2018-10-28] MEDS: INSULIN REGULAR 100 UNIT/ML SUBCUT SCH ×5 (00:20→23:19)
[2018-10-28] MEDS: ALBUTEROL/IPRATROPIUM 3 ML NEB RESP TX SCH ×7 (00:20→23:56)
[2018-10-28] MEDS: methylPREDNISolone SOD SUC 40 MG/1 ML VIAL IV SCH ×3 (02:50→18:49)
[2018-10-28 04:53] LABS: Osmolality,Calculated 288.4 MOS/KG (273-304)
[2018-10-28 07:08] LABS: Basophils % 0.1 % (0.0-0.8); Eosinophils % 0.3 % (0.00-10.9); Hematocrit 37.2 VOL% (35.7-47.0); Hemoglobin 11.3 GM/DL (12.0-16.0); Immature Granulocytes % 0.7 %; Lymphocytes # 1.2 10*3/uL (1.4-4.0); Lymphocytes % 9.1 % (21.3-54.2); Mean Corpuscular HGB Conc 30.4 GM/DL (32-36); Mean Corpuscular Volume 92.8 FL (87-102); Mean Platelet Volume 11.8 FL (9.6-12.0); Monocytes % 6.5 % (1.7-12.7); Neutrophils % 83.3 % (38.7-73.9); Platelet Count 246 T/CUMM (130-400); Red Blood Count 4.01 MC/CUMM (3.8-5.5); White Blood Count 13.6 T/CUMM (4-12)
[2018-10-28] MEDS: SERTRALINE 100 MG TABLET PO SCH (09:10)
[2018-10-28] MEDS: METOPROLOL TARTRATE 50 MG TABLET PO SCH ×2 (09:10→20:54)
[2018-10-28] MEDS: lamoTRIgine 100 MG TABLET PO SCH ×2 (09:11→20:54)
[2018-10-28] MEDS: SIMVASTATIN 20 MG TABLET PO SCH (09:11)
[2018-10-28] MEDS: QUEtiapine 25 MG TABLET PO SCH ×2 (09:12→20:54)
[2018-10-28] MEDS: TOPIRAMATE 100 MG TABLET PO SCH ×2 (09:12→20:54)
[2018-10-28] MEDS: FUROSEMIDE 20 MG TABLET PO SCH (09:12)
[2018-10-28] MEDS: DOCUSATE SODIUM 100 MG CAPSULE PO SCH ×2 (09:12→20:54)
[2018-10-28] MEDS: MAGNESIUM CHLORIDE 64 MG TABLET PO SCH (09:12)
[2018-10-28] MEDS: PANTOPRAZOLE 40 MG TABLET PO SCH (09:12)
[2018-10-28] MEDS: NICOTINE 21 MG/24 HR PATCH TRANSDERM SCH (09:13)
[2018-10-28] MEDS: NYSTATIN 500,000 UNIT/5 ML UDCUP SWISH/SWAL SCH ×4 (09:13→20:54)
[2018-10-28] MEDS: AZITHROMYCIN INJ 500 MG in SODIUM CHLORIDE 0.9% 250 ML IV SCH (09:22)
[2018-10-28] MEDS: LORazepam 2 MG/1 ML VIAL IV PRN ×3 (10:40→23:03)
[2018-10-28 10:51] LABS: VDRL Spinal Fluid Negative (Negative)
[2018-10-28] MEDS: VANCOMYCIN INJ 1,000 MG in SODIUM CHLORIDE 0.9% 250 ML IV SCH (18:49)
[2018-10-28] MEDS: hydrALAZINE 20 MG/1 ML VIAL IV PRN (20:11)
[2018-10-28] MEDS: ARIPiprazole 10 MG TABLET PO SCH (20:54)
[2018-10-29] MEDS: methylPREDNISolone SOD SUC 40 MG/1 ML VIAL IV SCH ×3 (02:07→16:15)
[2018-10-29] MEDS: ALBUTEROL/IPRATROPIUM 3 ML NEB RESP TX SCH ×6 (02:48→23:03)
[2018-10-29 05:26] LABS: Basophils % 0.1 % (0.0-0.8); Calcium 8.3 MG/DL (8.5-10.1); Eosinophils # 0.1 10*3/uL (0.0-0.87); Eosinophils % 0.3 % (0.00-10.9); Hematocrit 39.2 VOL% (35.7-47.0); Hemoglobin 12.1 GM/DL (12.0-16.0); Immature Granulocytes % 1.1 %; Immature Granulocytes Absolute 0.18 #; Lymphocytes # 0.7 10*3/uL (1.4-4.0); Lymphocytes % 4.2 % (21.3-54.2); Mean Corpuscular HGB Conc 30.9 GM/DL (32-36); Mean Corpuscular Volume 91.6 FL (87-102); Mean Platelet Volume 11.5 FL (9.6-12.0); Monocytes % 3.4 % (1.7-12.7); Neutrophils % 90.9 % (38.7-73.9); Osmolality,Calculated 286.7 MOS/KG (273-304); Platelet Count 235 T/CUMM (130-400); Red Blood Count 4.28 MC/CUMM (3.8-5.5); Red Cell Distribution Width 13.9 % (9.3-17.3)
[2018-10-29 06:14] LABS: Lymphocytes 6 % (20-55); Segmented Neutrophils 87 % (50-85); Total Cells Counted 100
[2018-10-29 06:15] LABS: Acanthocytes Few; Hypochromasia Slight; Platelet Estimate Normal
[2018-10-29] MEDS: INSULIN REGULAR 100 UNIT/ML SUBCUT SCH ×4 (06:33→21:06)
[2018-10-29] MEDS: FLUCONAZOLE 100 MG TABLET PO SCH (09:29)
[2018-10-29] MEDS: DOCUSATE SODIUM 100 MG CAPSULE PO SCH ×2 (09:29→21:01)
[2018-10-29] MEDS: FUROSEMIDE 20 MG TABLET PO SCH (09:30)
[2018-10-29] MEDS: NICOTINE 21 MG/24 HR PATCH TRANSDERM SCH (09:30)
[2018-10-29] MEDS: METOPROLOL TARTRATE 50 MG TABLET PO SCH ×2 (09:30→21:01)
[2018-10-29] MEDS: NYSTATIN 500,000 UNIT/5 ML UDCUP SWISH/SWAL SCH ×4 (09:30→21:01)
[2018-10-29] MEDS: lamoTRIgine 100 MG TABLET PO SCH ×2 (09:30→20:59)
[2018-10-29] MEDS: MAGNESIUM CHLORIDE 64 MG TABLET PO SCH (09:31)
[2018-10-29] MEDS: PANTOPRAZOLE 40 MG TABLET PO SCH (09:31)
[2018-10-29] MEDS: QUEtiapine 25 MG TABLET PO SCH ×2 (09:31→21:00)
[2018-10-29] MEDS: TOPIRAMATE 100 MG TABLET PO SCH ×2 (09:31→21:00)
[2018-10-29] MEDS: SIMVASTATIN 20 MG TABLET PO SCH (09:31)
[2018-10-29] MEDS: SERTRALINE 100 MG TABLET PO SCH (09:32)
[2018-10-29] MEDS: AZITHROMYCIN INJ 500 MG in SODIUM CHLORIDE 0.9% 250 ML IV SCH (09:49)
[2018-10-29 12:21] LABS: M. Tuberculosis PCR Result Negative (Negative); M. Tuberculosis PCR Source CSF
[2018-10-29 16:41] LABS: West Nile Virus Ab, IgG, CSF Negative (Negative); West Nile Virus Ab, IgM, CSF Negative (Negative)
[2018-10-29] MEDS: VANCOMYCIN INJ 1,000 MG in SODIUM CHLORIDE 0.9% 250 ML IV SCH (18:16)
[2018-10-29] MEDS: ARIPiprazole 10 MG TABLET PO SCH (20:59)
[2018-10-30] MEDS: ALBUTEROL/IPRATROPIUM 3 ML NEB RESP TX SCH ×6 (02:51→23:52)
[2018-10-30] MEDS: methylPREDNISolone SOD SUC 40 MG/1 ML VIAL IV SCH ×2 (03:39→15:22)
[2018-10-30 05:12] LABS: Basophils % 0.1 % (0.0-0.8); Eosinophils # 0.1 10*3/uL (0.0-0.87); Eosinophils % 0.8 % (0.00-10.9); Hematocrit 35.5 VOL% (35.7-47.0); Hemoglobin 11.1 GM/DL (12.0-16.0); Immature Granulocytes % 1.1 %; Immature Granulocytes Absolute 0.17 #; Lymphocytes % 13.5 % (21.3-54.2); Mean Corpuscular HGB Conc 31.3 GM/DL (32-36); Mean Corpuscular Volume 90.3 FL (87-102); Monocytes % 6.9 % (1.7-12.7); Neutrophils % 77.6 % (38.7-73.9); Platelet Count 225 T/CUMM (130-400); Red Blood Count 3.93 MC/CUMM (3.8-5.5)
[2018-10-30 05:31] LABS: Calcium 7.6 MG/DL (8.5-10.1); Osmolality,Calculated 285.5 MOS/KG (273-304)
[2018-10-30] MEDS: INSULIN REGULAR 100 UNIT/ML SUBCUT SCH ×4 (08:11→22:20)
[2018-10-30] MEDS: AZITHROMYCIN INJ 500 MG in SODIUM CHLORIDE 0.9% 250 ML IV SCH (08:37)
[2018-10-30] MEDS: NICOTINE 21 MG/24 HR PATCH TRANSDERM SCH (08:39)
[2018-10-30] MEDS: NYSTATIN 500,000 UNIT/5 ML UDCUP SWISH/SWAL SCH ×4 (08:42→20:56)
[2018-10-30] MEDS: METOPROLOL TARTRATE 50 MG TABLET PO SCH ×2 (08:43→20:59)
[2018-10-30] MEDS: lamoTRIgine 100 MG TABLET PO SCH ×2 (08:43→20:57)
[2018-10-30] MEDS: FLUCONAZOLE 100 MG TABLET PO SCH (08:43)
[2018-10-30] MEDS: SIMVASTATIN 20 MG TABLET PO SCH (08:43)
[2018-10-30] MEDS: DOCUSATE SODIUM 100 MG CAPSULE PO SCH ×2 (08:43→21:01)
[2018-10-30] MEDS: FUROSEMIDE 20 MG TABLET PO SCH (08:44)
[2018-10-30] MEDS: QUEtiapine 25 MG TABLET PO SCH ×2 (08:44→20:58)
[2018-10-30] MEDS: PANTOPRAZOLE 40 MG TABLET PO SCH (08:44)
[2018-10-30] MEDS: SERTRALINE 100 MG TABLET PO SCH (08:44)
[2018-10-30] MEDS: MAGNESIUM CHLORIDE 64 MG TABLET PO SCH (08:44)
[2018-10-30] MEDS: TOPIRAMATE 100 MG TABLET PO SCH ×2 (08:45→20:57)
[2018-10-30] MEDS: levETIRAcetam 500 MG TABLET PO SCH ×2 (09:26→20:59)
[2018-10-30] MEDS: ACETAMINOPHEN 325 MG TABLET PO PRN (19:31)
[2018-10-30] MEDS: ARIPiprazole 10 MG TABLET PO SCH (20:58)
[2018-10-31] MEDS: methylPREDNISolone SOD SUC 40 MG/1 ML VIAL IV SCH ×2 (03:28→16:30)
[2018-10-31] MEDS: ALBUTEROL/IPRATROPIUM 3 ML NEB RESP TX SCH ×5 (03:52→19:40)
[2018-10-31 06:16] LABS: Osmolality,Calculated 285.7 MOS/KG (273-304)
[2018-10-31 06:17] LABS: Basophils % 0.1 % (0.0-0.8); Eosinophils # 0.1 10*3/uL (0.0-0.87); Eosinophils % 0.7 % (0.00-10.9); Hematocrit 36.6 VOL% (35.7-47.0); Hemoglobin 11.5 GM/DL (12.0-16.0); Immature Granulocytes % 1.2 %; Immature Granulocytes Absolute 0.17 #; Lymphocytes # 1.4 10*3/uL (1.4-4.0); Lymphocytes % 9.9 % (21.3-54.2); Mean Corpuscular HGB Conc 31.4 GM/DL (32-36); Mean Corpuscular Volume 89.7 FL (87-102); Mean Platelet Volume 11.5 FL (9.6-12.0); Monocytes % 4.9 % (1.7-12.7); Neutrophils % 83.2 % (38.7-73.9); Platelet Count 231 T/CUMM (130-400); Red Blood Count 4.08 MC/CUMM (3.8-5.5); White Blood Count 13.7 T/CUMM (4-12)
[2018-10-31] MEDS: INSULIN REGULAR 100 UNIT/ML SUBCUT SCH ×4 (08:57→21:11)
[2018-10-31] MEDS: NICOTINE 21 MG/24 HR PATCH TRANSDERM SCH (08:59)
[2018-10-31] MEDS: NYSTATIN 500,000 UNIT/5 ML UDCUP SWISH/SWAL SCH ×4 (08:59→21:12)
[2018-10-31] MEDS: lamoTRIgine 100 MG TABLET PO SCH ×2 (08:59→21:11)
[2018-10-31] MEDS: levETIRAcetam 500 MG TABLET PO SCH ×2 (09:00→21:11)
[2018-10-31] MEDS: METOPROLOL TARTRATE 50 MG TABLET PO SCH ×2 (09:00→21:11)
[2018-10-31] MEDS: QUEtiapine 25 MG TABLET PO SCH ×2 (09:00→21:12)
[2018-10-31] MEDS: PANTOPRAZOLE 40 MG TABLET PO SCH (09:01)
[2018-10-31] MEDS: MAGNESIUM CHLORIDE 64 MG TABLET PO SCH (09:01)
[2018-10-31] MEDS: TOPIRAMATE 100 MG TABLET PO SCH ×2 (09:01→21:12)
[2018-10-31] MEDS: SERTRALINE 100 MG TABLET PO SCH (09:01)
[2018-10-31] MEDS: FLUCONAZOLE 100 MG TABLET PO SCH (09:01)
[2018-10-31] MEDS: AZITHROMYCIN INJ 500 MG in SODIUM CHLORIDE 0.9% 250 ML IV SCH (09:02)
[2018-10-31] MEDS: SIMVASTATIN 20 MG TABLET PO SCH (09:02)
[2018-10-31] MEDS: ZINC OXIDE PASTE 113 GM TUBE TOP SCH ×2 (09:02→21:11)
[2018-10-31] MEDS: DOCUSATE SODIUM 100 MG CAPSULE PO SCH ×2 (09:02→21:11)
[2018-10-31] MEDS: ARIPiprazole 10 MG TABLET PO SCH (21:11)
[2018-11-01] MEDS: methylPREDNISolone SOD SUC 40 MG/1 ML VIAL IV SCH ×2 (04:17→16:40)
[2018-11-01 05:07] LABS: Basophils % 0.1 % (0.0-0.8); Eosinophils # 0.1 10*3/uL (0.0-0.87); Eosinophils % 0.8 % (0.00-10.9); Hematocrit 36.9 VOL% (35.7-47.0); Hemoglobin 11.4 GM/DL (12.0-16.0); Immature Granulocytes % 0.8 %; Lymphocytes # 2.5 10*3/uL (1.4-4.0); Lymphocytes % 19.2 % (21.3-54.2); Mean Corpuscular HGB Conc 30.9 GM/DL (32-36); Mean Corpuscular Volume 90.2 FL (87-102); Mean Platelet Volume 11.8 FL (9.6-12.0); Monocytes % 9.2 % (1.7-12.7); Neutrophils % 69.9 % (38.7-73.9); Platelet Count 238 T/CUMM (130-400); Red Blood Count 4.09 MC/CUMM (3.8-5.5); Red Cell Distribution Width 13.6 % (9.3-17.3); White Blood Count 13.1 T/CUMM (4-12)
[2018-11-01 05:42] LABS: Calcium 7.8 MG/DL (8.5-10.1); Osmolality,Calculated 287.5 MOS/KG (273-304)
[2018-11-01] MEDS: ALBUTEROL/IPRATROPIUM 3 ML NEB RESP TX SCH ×4 (07:16→19:55)
[2018-11-01] MEDS: INSULIN REGULAR 100 UNIT/ML SUBCUT SCH ×4 (08:12→21:18)
[2018-11-01] MEDS: NYSTATIN 500,000 UNIT/5 ML UDCUP SWISH/SWAL SCH ×4 (08:57→21:19)
[2018-11-01] MEDS: NICOTINE 21 MG/24 HR PATCH TRANSDERM SCH (08:57)
[2018-11-01] MEDS: AZITHROMYCIN INJ 500 MG in SODIUM CHLORIDE 0.9% 250 ML IV SCH (08:58)
[2018-11-01] MEDS: FLUCONAZOLE 100 MG TABLET PO SCH (08:59)
[2018-11-01] MEDS: MAGNESIUM CHLORIDE 64 MG TABLET PO SCH (08:59)
[2018-11-01] MEDS: TOPIRAMATE 100 MG TABLET PO SCH ×2 (08:59→21:20)
[2018-11-01] MEDS: QUEtiapine 25 MG TABLET PO SCH ×2 (08:59→21:19)
[2018-11-01] MEDS: SERTRALINE 100 MG TABLET PO SCH (08:59)
[2018-11-01] MEDS: PANTOPRAZOLE 40 MG TABLET PO SCH (09:00)
[2018-11-01] MEDS: levETIRAcetam 500 MG TABLET PO SCH ×2 (09:00→21:19)
[2018-11-01] MEDS: lamoTRIgine 100 MG TABLET PO SCH ×2 (09:00→21:19)
[2018-11-01] MEDS: ZINC OXIDE PASTE 113 GM TUBE TOP SCH ×2 (09:01→21:19)
[2018-11-01] MEDS: DOCUSATE SODIUM 100 MG CAPSULE PO SCH ×2 (09:01→21:19)
[2018-11-01] MEDS: SIMVASTATIN 20 MG TABLET PO SCH (09:10)
[2018-11-01] MEDS: METOPROLOL TARTRATE 50 MG TABLET PO SCH ×2 (09:10→21:19)
[2018-11-01] MEDS: VANCOMYCIN 50 MG/ML 60 ML/BOTTLE PO SCH ×2 (12:15→17:17)
[2018-11-01] MEDS: ARIPiprazole 10 MG TABLET PO SCH (21:19)
[2018-11-01] MEDS: ACETAMINOPHEN 325 MG TABLET PO PRN (23:56)
[2018-11-02] MEDS: VANCOMYCIN 50 MG/ML 60 ML/BOTTLE PO SCH ×4 (00:05→17:43)
[2018-11-02] MEDS: DICYCLOMINE 10 MG CAPSULE PO PRN (01:35)
[2018-11-02] MEDS ORDERED: HYDROmorphone 2 MG/1 ML VIAL IV PRN (05:06)
[2018-11-02] MEDS: methylPREDNISolone SOD SUC 40 MG/1 ML VIAL IV SCH ×2 (05:27→16:36)
[2018-11-02] MEDS: ALBUTEROL/IPRATROPIUM 3 ML NEB RESP TX SCH ×5 (07:51→20:53)
[2018-11-02 09:12] LABS: Basophils % 0.2 % (0.0-0.8); Eosinophils % 0.2 % (0.00-10.9); Hematocrit 44.6 VOL% (35.7-47.0); Hemoglobin 13.7 GM/DL (12.0-16.0); Immature Granulocytes Absolute 0.12 #; Lymphocytes # 0.8 10*3/uL (1.4-4.0); Lymphocytes % 6.4 % (21.3-54.2); Mean Corpuscular HGB Conc 30.7 GM/DL (32-36); Mean Corpuscular Volume 92.3 FL (87-102); Mean Platelet Volume 10.8 FL (9.6-12.0); Monocytes % 2.7 % (1.7-12.7); Neutrophils % 89.5 % (38.7-73.9); Platelet Count 262 T/CUMM (130-400); Red Blood Count 4.83 MC/CUMM (3.8-5.5); Red Cell Distribution Width 13.2 % (9.3-17.3); White Blood Count 12.4 T/CUMM (4-12)
[2018-11-02] MEDS: FLUCONAZOLE 100 MG TABLET PO SCH (09:18)
[2018-11-02] MEDS: ZINC OXIDE PASTE 113 GM TUBE TOP SCH ×2 (09:18→21:35)
[2018-11-02] MEDS: NYSTATIN 500,000 UNIT/5 ML UDCUP SWISH/SWAL SCH ×4 (09:19→21:36)
[2018-11-02] MEDS: METOPROLOL TARTRATE 50 MG TABLET PO SCH ×2 (09:19→21:35)
[2018-11-02] MEDS: levETIRAcetam 500 MG TABLET PO SCH ×2 (09:19→21:35)
[2018-11-02] MEDS: lamoTRIgine 100 MG TABLET PO SCH ×2 (09:19→21:35)
[2018-11-02] MEDS: QUEtiapine 25 MG TABLET PO SCH ×2 (09:20→21:36)
[2018-11-02] MEDS: PANTOPRAZOLE 40 MG TABLET PO SCH (09:20)
[2018-11-02] MEDS: SIMVASTATIN 20 MG TABLET PO SCH (09:21)
[2018-11-02] MEDS: TOPIRAMATE 100 MG TABLET PO SCH ×2 (09:21→21:36)
[2018-11-02] MEDS: SERTRALINE 100 MG TABLET PO SCH (09:21)
[2018-11-02 09:22] LABS: Alanine Aminotransferase 36 U/L (13-56); Albumin 3.7 G/DL (3.4-5.0); Alkaline Phosphatase 135 U/L (45-117); Aspartate Amino Transferase 11 U/L (0-37); Bilirubin,Direct < 0.100 MG/DL (0.0-0.20); Bilirubin,Indirect 0.3 MG/DL (0.0-1.0); Bilirubin,Total < 0.39 MG/DL (0.2-1.0); Calcium 8.4 MG/DL (8.5-10.1); Total Protein 7.4 G/DL (6.4-8.3)
[2018-11-02] MEDS: cloNIDine 0.1 MG/24 HR PATCH TRANSDERM SCH (09:30)
[2018-11-02] MEDS: INSULIN REGULAR 100 UNIT/ML SUBCUT SCH ×4 (10:17→21:31)
[2018-11-02] MEDS: DOCUSATE SODIUM 100 MG CAPSULE PO SCH ×2 (10:18→21:35)
[2018-11-02] MEDS: MAGNESIUM CHLORIDE 64 MG TABLET PO SCH (10:20)
[2018-11-02] MEDS: NICOTINE 21 MG/24 HR PATCH TRANSDERM SCH (10:30)
[2018-11-02] MEDS: ARIPiprazole 10 MG TABLET PO SCH (21:35)
[2018-11-03] MEDS: VANCOMYCIN 50 MG/ML 60 ML/BOTTLE PO SCH ×4 (01:16→17:23)
[2018-11-03] MEDS: methylPREDNISolone SOD SUC 40 MG/1 ML VIAL IV SCH ×2 (03:42→10:14)
[2018-11-03] MEDS: ALBUTEROL/IPRATROPIUM 3 ML NEB RESP TX SCH ×4 (07:40→20:21)
[2018-11-03] MEDS: DICYCLOMINE 10 MG CAPSULE PO PRN (09:33)
[2018-11-03] MEDS: NYSTATIN 500,000 UNIT/5 ML UDCUP SWISH/SWAL SCH ×4 (09:33→21:40)
[2018-11-03] MEDS: FLUCONAZOLE 100 MG TABLET PO SCH (09:34)
[2018-11-03] MEDS: MAGNESIUM CHLORIDE 64 MG TABLET PO SCH (09:34)
[2018-11-03] MEDS: lamoTRIgine 100 MG TABLET PO SCH ×2 (09:34→21:42)
[2018-11-03] MEDS: SIMVASTATIN 20 MG TABLET PO SCH (09:34)
[2018-11-03] MEDS: levETIRAcetam 500 MG TABLET PO SCH (09:34)
[2018-11-03] MEDS: QUEtiapine 25 MG TABLET PO SCH ×2 (09:35→21:42)
[2018-11-03] MEDS: PANTOPRAZOLE 40 MG TABLET PO SCH (09:35)
[2018-11-03] MEDS: METOPROLOL TARTRATE 50 MG TABLET PO SCH ×2 (09:35→21:43)
[2018-11-03] MEDS: TOPIRAMATE 100 MG TABLET PO SCH ×2 (09:35→21:40)
[2018-11-03] MEDS: NICOTINE 21 MG/24 HR PATCH TRANSDERM SCH (09:35)
[2018-11-03] MEDS: SERTRALINE 100 MG TABLET PO SCH (09:35)
[2018-11-03] MEDS: DOCUSATE SODIUM 100 MG CAPSULE PO SCH ×2 (09:36→21:43)
[2018-11-03] MEDS: ZINC OXIDE PASTE 113 GM TUBE TOP SCH ×2 (09:36→21:43)
[2018-11-03] MEDS: INSULIN REGULAR 100 UNIT/ML SUBCUT SCH ×4 (09:37→21:40)
[2018-11-03] MEDS ORDERED: levETIRAcetam 250 MG TABLET PO SCH (21:00)
[2018-11-03] MEDS: ARIPiprazole 10 MG TABLET PO SCH (21:40)
[2018-11-04] MEDS: VANCOMYCIN 50 MG/ML 60 ML/BOTTLE PO SCH ×2 (00:15→05:08)
[2018-11-04 04:29] LABS: Basophils % 0.3 % (0.0-0.8); Eosinophils # 0.1 10*3/uL (0.0-0.87); Hematocrit 34.4 VOL% (35.7-47.0); Hemoglobin 10.6 GM/DL (12.0-16.0); Immature Granulocytes % 0.5 %; Immature Granulocytes Absolute 0.06 #; Mean Corpuscular HGB Conc 30.8 GM/DL (32-36); Mean Platelet Volume 10.8 FL (9.6-12.0); Monocytes % 7.3 % (1.7-12.7); Neutrophils % 64.9 % (38.7-73.9); Platelet Count 218 T/CUMM (130-400); Red Blood Count 3.78 MC/CUMM (3.8-5.5); Red Cell Distribution Width 13.1 % (9.3-17.3); White Blood Count 11.5 T/CUMM (4-12)
[2018-11-04 04:56] LABS: Osmolality,Calculated 276.1 MOS/KG (273-304)
[2018-11-04] MEDS: ALBUTEROL/IPRATROPIUM 3 ML NEB RESP TX SCH (08:00)
[2018-11-04 08:13] VITALS: BP 111/50
[2018-11-04] MEDS: INSULIN REGULAR 100 UNIT/ML SUBCUT SCH (08:40)
[2018-11-04] MEDS: methylPREDNISolone SOD SUC 40 MG/1 ML VIAL IV SCH (08:49)
[2018-11-04] MEDS: TOPIRAMATE 100 MG TABLET PO SCH (08:52)
[2018-11-04] MEDS: SIMVASTATIN 20 MG TABLET PO SCH (08:52)
[2018-11-04] MEDS: DICYCLOMINE 10 MG CAPSULE PO PRN (08:52)
[2018-11-04] MEDS: METOPROLOL TARTRATE 50 MG TABLET PO SCH (08:53)
[2018-11-04] MEDS: QUEtiapine 25 MG TABLET PO SCH (08:53)
[2018-11-04] MEDS: lamoTRIgine 100 MG TABLET PO SCH (08:53)
[2018-11-04] MEDS: SERTRALINE 100 MG TABLET PO SCH (08:53)
[2018-11-04] MEDS: FLUCONAZOLE 100 MG TABLET PO SCH (08:53)
[2018-11-04] MEDS: PANTOPRAZOLE 40 MG TABLET PO SCH (08:54)
[2018-11-04] MEDS: MAGNESIUM CHLORIDE 64 MG TABLET PO SCH (08:54)
[2018-11-04] MEDS: NICOTINE 21 MG/24 HR PATCH TRANSDERM SCH (08:54)
[2018-11-04] MEDS: NYSTATIN 500,000 UNIT/5 ML UDCUP SWISH/SWAL SCH (08:54)
[2018-11-04] MEDS: DOCUSATE SODIUM 100 MG CAPSULE PO SCH (08:55)
[2018-11-04] MEDS: ZINC OXIDE PASTE 113 GM TUBE TOP SCH (08:55)
[2018-11-04] MEDS ORDERED: levETIRAcetam 500 MG TABLET PO SCH (09:00)
[2018-11-04] MEDS ORDERED: ENOXAPARIN 40 MG/0.4 ML SYRINGE SUBCUT SCH (09:00)
== END 2018-11-04 11:05 | disposition swing bed (61) | DRG 100 ==
LOC: EDBD → EDUNIT# → N.ED 12:45 → N.EDINP 15:30 → N.ICU 17:57 → N.TELES 10-29 05:38 → N.TELEN 11-01 18:12
PROVIDERS: ADMIT Internal Medicine; ATTEND Internal Medicine

== ENCOUNTER 2019-04-14 06:18 | Inpatient (IN) ==
[2019-04-14 06:37] LABS: Basophils # 0.1 10*3/uL (0.0-0.2); Basophils % 0.7 % (0.0-0.8); Eosinophils # 0.2 10*3/uL (0.0-0.87); Eosinophils % 2.3 % (0.00-10.9); Hematocrit 39.1 VOL% (35.7-47.0); Hemoglobin 12.1 GM/DL (12.0-16.0); Immature Granulocytes % 0.3 %; Immature Granulocytes Absolute 0.03 #; Lymphocytes # 2.2 10*3/uL (1.4-4.0); Lymphocytes % 22.4 % (21.3-54.2); Mean Corpuscular HGB Conc 30.9 GM/DL (32-36); Mean Corpuscular Volume 90.3 FL (87-102); Mean Platelet Volume 10.4 FL (9.6-12.0); Monocytes % 3.8 % (1.7-12.7); Neutrophils % 70.5 % (38.7-73.9); Platelet Count 252 T/CUMM (130-400); Red Blood Count 4.33 MC/CUMM (3.8-5.5); Red Cell Distribution Width 13.4 % (9.3-17.3); White Blood Count 9.9 T/CUMM (4-12)
[2019-04-14] MEDS ORDERED: SODIUM CHLORIDE 0.9% 500 ML IV STA ×2 (06:37→07:11)
[2019-04-14] MEDS ORDERED: SODIUM CHLORIDE 0.9% 1,000 ML IV STA (06:45)
[2019-04-14 06:57] LABS: Alanine Aminotransferase 15 U/L (13-56); Albumin 3.3 G/DL (3.4-5.0); Alkaline Phosphatase 201 U/L (45-117); Aspartate Amino Transferase 18 U/L (0-37); Blood Urea Nitrogen 15 MG/DL (7-18); Estimated Glom Filtration Rate 34 ML/MIN; Glucose 143 MG/DL (74-106); Osmolality,Calculated 279.5 MOS/KG (273-304); Total Protein 7.6 G/DL (6.4-8.3)
[2019-04-14] MEDS ORDERED: levETIRAcetam 500 MG/5 ML VIAL IV ONE (07:04)
[2019-04-14 07:05] LABS: Apearance,Urine CLEAR (Clear); Bacteria,Urine Occasional /HPF (Few); Bilirubin,Urine Negative (Negative); Blood, Urine Negative (Negative); Glucose,Urine (UA) Negative (Negative); Ketones,Urine Negative (Negative); Nitrite,Urine Positive (Negative); Protein,Urine 30 MG/DL; RBC,Urine 2 /HPF (0-4); Urine Color Straw (Yellow); Urine Specific Gravity 1.004 (1.001-1.035); Urine Urobilinogen < 2.0 EU/DL (0.2-1.0); WBC,Urine 5 /HPF (0-6)
[2019-04-14 07:14] LABS: Barbiturates Screen,Urine Negative (Negative); Benzodiazepines Screen,Urine Negative (Negative); Cannabinoid Screen,Urine Negative (Negative); Opiate Screen,Urine Negative (Negative); Phencyclidine Screen,Urine Negative (Negative)
[2019-04-14] MEDS ORDERED: GENTAMICIN INJ 120 MG in SODIUM CHLORIDE 0.9% 100 ML IV STA (07:44)
[2019-04-14] MEDS ORDERED: ACETAMINOPHEN 325 MG TABLET PO PRN (08:49)
[2019-04-14] MEDS ORDERED: GLUCAGON 1 MG VIAL IM PRN (08:49)
[2019-04-14] MEDS ORDERED: ONDANSETRON 4 MG/2 ML VIAL IV PRN (08:49)
[2019-04-14] MEDS ORDERED: DEXTROSE 50% 25 GM/50 ML VIAL IV PRN (08:49)
[2019-04-14] MEDS ORDERED: ALBUTEROL/IPRATROPIUM 3 ML NEB RESP TX PRN (08:54)
[2019-04-14] MEDS ORDERED: GENTAMICIN 80 MG/2 ML VIAL ONE (09:18)
[2019-04-14] MEDS: SODIUM CHLORIDE 0.9% 1,000 ML IV SCH ×3 (10:35→20:29)
[2019-04-14] MEDS: INSULIN LISPRO 100 UNIT/ML SUBCUT SCH ×3 (12:20→20:44)
[2019-04-14] MEDS: PANTOPRAZOLE 40 MG TABLET PO SCH (12:20)
[2019-04-14] MEDS: ALBUTEROL/IPRATROPIUM 3 ML NEB RESP TX SCH ×2 (12:30→20:34)
[2019-04-14] MEDS ORDERED: INFLUENZA VIRUS VACCINE 0.5 ML SYRINGE IM ONE (12:30)
[2019-04-14] MEDS: DEXTROSE 10% 250 ML BAG IV PRN ×2 (17:36→20:31)
[2019-04-14] MEDS: METOPROLOL TARTRATE 50 MG TABLET PO SCH (20:33)
[2019-04-14] MEDS: DOCUSATE SODIUM 100 MG CAPSULE PO SCH (20:33)
[2019-04-14] MEDS: TOPIRAMATE 100 MG TABLET PO SCH (20:33)
[2019-04-14] MEDS: ARIPiprazole 10 MG TABLET PO SCH (20:34)
[2019-04-14] MEDS: levETIRAcetam 500 MG TABLET PO SCH (20:34)
[2019-04-14] MEDS: lamoTRIgine 100 MG TABLET PO SCH (20:43)
[2019-04-14] MEDS: TRIAMCINOLONE 0.1% CREAM 15 GM TUBE TOP SCH (20:55)
[2019-04-15] MEDS: ALBUTEROL/IPRATROPIUM 3 ML NEB RESP TX SCH ×4 (00:54→19:27)
[2019-04-15] MEDS: SODIUM CHLORIDE 0.9% 1,000 ML IV SCH ×2 (01:29→06:29)
[2019-04-15 05:10] LABS: Albumin 2.7 G/DL (3.4-5.0); Bilirubin,Total 0.9 MG/DL (0.2-1.0); Calcium 8.2 MG/DL (8.5-10.1); Osmolality,Calculated 280.1 MOS/KG (273-304); Total Protein 6.3 G/DL (6.4-8.3)
[2019-04-15 05:12] LABS: Calcium 8.2 MG/DL (8.5-10.1); Osmolality,Calculated 280.1 MOS/KG (273-304)
[2019-04-15] MEDS: INSULIN LISPRO 100 UNIT/ML SUBCUT SCH ×4 (07:54→21:36)
[2019-04-15] MEDS: METOPROLOL TARTRATE 50 MG TABLET PO SCH ×2 (09:03→20:50)
[2019-04-15] MEDS: predniSONE 10 MG TABLET PO SCH (09:03)
[2019-04-15] MEDS: DOCUSATE SODIUM 100 MG CAPSULE PO SCH ×2 (09:04→20:50)
[2019-04-15] MEDS: FOLIC ACID 1 MG TABLET PO SCH (09:04)
[2019-04-15] MEDS: SERTRALINE 100 MG TABLET PO SCH (09:04)
[2019-04-15] MEDS: levETIRAcetam 500 MG TABLET PO SCH ×2 (09:04→20:50)
[2019-04-15] MEDS: PANTOPRAZOLE 40 MG TABLET PO SCH (09:05)
[2019-04-15] MEDS: SIMVASTATIN 20 MG TABLET PO SCH (09:05)
[2019-04-15] MEDS: lamoTRIgine 100 MG TABLET PO SCH ×2 (09:05→20:50)
[2019-04-15] MEDS: MAGNESIUM CHLORIDE 64 MG TABLET PO SCH (09:05)
[2019-04-15] MEDS: TOPIRAMATE 100 MG TABLET PO SCH ×2 (09:06→20:49)
[2019-04-15] MEDS: TRIAMCINOLONE 0.1% CREAM 15 GM TUBE TOP SCH ×2 (09:07→20:51)
[2019-04-15] MEDS ORDERED: cloNIDine 0.1 MG TABLET PO PRN (12:23)
[2019-04-15] MEDS: ARIPiprazole 10 MG TABLET PO SCH (20:50)
[2019-04-16] MEDS: ALBUTEROL/IPRATROPIUM 3 ML NEB RESP TX SCH ×5 (01:06→19:18)
[2019-04-16 05:40] LABS: Basophils # 0.1 10*3/uL (0.0-0.2); Basophils % 0.6 % (0.0-0.8); Eosinophils # 0.2 10*3/uL (0.0-0.87); Eosinophils % 2.2 % (0.00-10.9); Hematocrit 32.9 VOL% (35.7-47.0); Hemoglobin 10.1 GM/DL (12.0-16.0); Immature Granulocytes % 0.3 %; Immature Granulocytes Absolute 0.03 #; Lymphocytes # 2.6 10*3/uL (1.4-4.0); Mean Corpuscular HGB Conc 30.7 GM/DL (32-36); Mean Corpuscular Volume 90.1 FL (87-102); Mean Platelet Volume 10.7 FL (9.6-12.0); Monocytes % 7.6 % (1.7-12.7); Neutrophils % 60.3 % (38.7-73.9); Platelet Count 211 T/CUMM (130-400); Red Blood Count 3.65 MC/CUMM (3.8-5.5); Red Cell Distribution Width 13.8 % (9.3-17.3); White Blood Count 9.1 T/CUMM (4-12)
[2019-04-16 06:03] LABS: Bilirubin,Total 0.5 MG/DL (0.2-1.0); Calcium 8.7 MG/DL (8.5-10.1); Osmolality,Calculated 283.3 MOS/KG (273-304); Total Protein 6.5 G/DL (6.4-8.3)
[2019-04-16] MEDS: INSULIN LISPRO 100 UNIT/ML SUBCUT SCH ×4 (09:32→21:57)
[2019-04-16] MEDS: MAGNESIUM CHLORIDE 64 MG TABLET PO SCH (09:37)
[2019-04-16] MEDS: levETIRAcetam 500 MG TABLET PO SCH ×2 (09:38→21:56)
[2019-04-16] MEDS: TOPIRAMATE 100 MG TABLET PO SCH ×2 (09:38→21:56)
[2019-04-16] MEDS: METOPROLOL TARTRATE 50 MG TABLET PO SCH ×2 (09:38→21:56)
[2019-04-16] MEDS: PANTOPRAZOLE 40 MG TABLET PO SCH (09:38)
[2019-04-16] MEDS: DOCUSATE SODIUM 100 MG CAPSULE PO SCH ×3 (09:38→22:18)
[2019-04-16] MEDS: FOLIC ACID 1 MG TABLET PO SCH (09:38)
[2019-04-16] MEDS: predniSONE 10 MG TABLET PO SCH (09:39)
[2019-04-16] MEDS: SERTRALINE 100 MG TABLET PO SCH (09:39)
[2019-04-16] MEDS: TRIAMCINOLONE 0.1% CREAM 15 GM TUBE TOP SCH ×2 (09:39→21:57)
[2019-04-16] MEDS: SIMVASTATIN 20 MG TABLET PO SCH (09:39)
[2019-04-16] MEDS: lamoTRIgine 100 MG TABLET PO SCH ×2 (09:39→21:56)
[2019-04-16] MEDS: AZITHROMYCIN 250 MG TABLET PO SCH (10:49)
[2019-04-16] MEDS: SODIUM CHLORIDE 0.9% 1,000 ML IV SCH ×2 (18:20→18:21)
[2019-04-16] MEDS: ARIPiprazole 10 MG TABLET PO SCH (21:57)
[2019-04-17 06:32] LABS: Basophils # 0.1 10*3/uL (0.0-0.2); Basophils % 0.6 % (0.0-0.8); Eosinophils # 0.2 10*3/uL (0.0-0.87); Eosinophils % 1.8 % (0.00-10.9); Hemoglobin 10.2 GM/DL (12.0-16.0); Immature Granulocytes % 0.2 %; Immature Granulocytes Absolute 0.02 #; Lymphocytes # 2.6 10*3/uL (1.4-4.0); Lymphocytes % 29.4 % (21.3-54.2); Mean Corpuscular HGB Conc 30.9 GM/DL (32-36); Mean Corpuscular Volume 90.2 FL (87-102); Mean Platelet Volume 10.9 FL (9.6-12.0); Monocytes % 7.5 % (1.7-12.7); Neutrophils % 60.5 % (38.7-73.9); Platelet Count 217 T/CUMM (130-400); Red Blood Count 3.66 MC/CUMM (3.8-5.5); Red Cell Distribution Width 13.8 % (9.3-17.3); White Blood Count 8.8 T/CUMM (4-12)
[2019-04-17 06:50] LABS: Calcium 8.7 MG/DL (8.5-10.1); Osmolality,Calculated 276.7 MOS/KG (273-304)
[2019-04-17] MEDS: ALBUTEROL/IPRATROPIUM 3 ML NEB RESP TX SCH ×3 (07:40→19:40)
[2019-04-17] MEDS: lamoTRIgine 100 MG TABLET PO SCH ×2 (09:14→20:57)
[2019-04-17] MEDS: MAGNESIUM CHLORIDE 64 MG TABLET PO SCH (09:14)
[2019-04-17] MEDS: TOPIRAMATE 100 MG TABLET PO SCH ×2 (09:14→20:58)
[2019-04-17] MEDS: METOPROLOL TARTRATE 50 MG TABLET PO SCH ×2 (09:14→20:57)
[2019-04-17] MEDS: FOLIC ACID 1 MG TABLET PO SCH (09:14)
[2019-04-17] MEDS: PANTOPRAZOLE 40 MG TABLET PO SCH (09:14)
[2019-04-17] MEDS: levETIRAcetam 500 MG TABLET PO SCH ×2 (09:15→20:57)
[2019-04-17] MEDS: DOCUSATE SODIUM 100 MG CAPSULE PO SCH ×2 (09:15→20:57)
[2019-04-17] MEDS: AZITHROMYCIN 250 MG TABLET PO SCH (09:15)
[2019-04-17] MEDS: SIMVASTATIN 20 MG TABLET PO SCH (09:16)
[2019-04-17] MEDS: SERTRALINE 100 MG TABLET PO SCH (09:36)
[2019-04-17] MEDS: predniSONE 10 MG TABLET PO SCH (09:36)
[2019-04-17] MEDS: TRIAMCINOLONE 0.1% CREAM 15 GM TUBE TOP SCH ×2 (09:36→20:58)
[2019-04-17] MEDS ORDERED: TUBERCULIN SKIN TEST 0.1 ML SYRINGE INTRADERM ONE (10:00)
[2019-04-17] MEDS: INSULIN LISPRO 100 UNIT/ML SUBCUT SCH ×4 (10:58→20:58)
[2019-04-17] MEDS: ARIPiprazole 10 MG TABLET PO SCH (20:57)
[2019-04-18] MEDS: ALBUTEROL/IPRATROPIUM 3 ML NEB RESP TX SCH ×4 (00:13→19:53)
[2019-04-18] MEDS: SERTRALINE 100 MG TABLET PO SCH (09:36)
[2019-04-18] MEDS: TOPIRAMATE 100 MG TABLET PO SCH ×2 (09:37→21:20)
[2019-04-18] MEDS: levETIRAcetam 500 MG TABLET PO SCH ×2 (09:37→21:19)
[2019-04-18] MEDS: FOLIC ACID 1 MG TABLET PO SCH (09:37)
[2019-04-18] MEDS: lamoTRIgine 100 MG TABLET PO SCH ×2 (09:37→21:19)
[2019-04-18] MEDS: SIMVASTATIN 20 MG TABLET PO SCH (09:37)
[2019-04-18] MEDS: AZITHROMYCIN 250 MG TABLET PO SCH (09:37)
[2019-04-18] MEDS: PANTOPRAZOLE 40 MG TABLET PO SCH (09:37)
[2019-04-18] MEDS: DOCUSATE SODIUM 100 MG CAPSULE PO SCH ×2 (09:38→21:19)
[2019-04-18] MEDS: MAGNESIUM CHLORIDE 64 MG TABLET PO SCH (09:38)
[2019-04-18] MEDS: predniSONE 10 MG TABLET PO SCH (09:38)
[2019-04-18] MEDS: TRIAMCINOLONE 0.1% CREAM 15 GM TUBE TOP SCH ×2 (09:38→21:20)
[2019-04-18] MEDS: METOPROLOL TARTRATE 50 MG TABLET PO SCH ×2 (09:38→21:19)
[2019-04-18] MEDS: INSULIN LISPRO 100 UNIT/ML SUBCUT SCH ×4 (10:26→21:20)
[2019-04-18] MEDS: ARIPiprazole 10 MG TABLET PO SCH (21:19)
[2019-04-19] MEDS: ALBUTEROL/IPRATROPIUM 3 ML NEB RESP TX SCH ×4 (00:43→20:39)
[2019-04-19 05:07] LABS: Basophils # 0.1 10*3/uL (0.0-0.2); Basophils % 0.7 % (0.0-0.8); Eosinophils # 0.2 10*3/uL (0.0-0.87); Eosinophils % 2.2 % (0.00-10.9); Hematocrit 33.9 VOL% (35.7-47.0); Hemoglobin 10.3 GM/DL (12.0-16.0); Immature Granulocytes % 0.5 %; Immature Granulocytes Absolute 0.04 #; Lymphocytes # 2.9 10*3/uL (1.4-4.0); Lymphocytes % 34.6 % (21.3-54.2); Mean Corpuscular HGB Conc 30.4 GM/DL (32-36); Mean Corpuscular Volume 92.1 FL (87-102); Mean Platelet Volume 10.9 FL (9.6-12.0); Monocytes % 9.3 % (1.7-12.7); Neutrophils % 52.7 % (38.7-73.9); Platelet Count 213 T/CUMM (130-400); Red Blood Count 3.68 MC/CUMM (3.8-5.5); Red Cell Distribution Width 13.7 % (9.3-17.3); White Blood Count 8.4 T/CUMM (4-12)
[2019-04-19 05:23] LABS: Calcium 8.6 MG/DL (8.5-10.1); Osmolality,Calculated 284.3 MOS/KG (273-304)
[2019-04-19] MEDS: predniSONE 10 MG TABLET PO SCH (10:01)
[2019-04-19] MEDS: TOPIRAMATE 100 MG TABLET PO SCH ×2 (10:01→21:21)
[2019-04-19] MEDS: MAGNESIUM CHLORIDE 64 MG TABLET PO SCH (10:01)
[2019-04-19] MEDS: AZITHROMYCIN 250 MG TABLET PO SCH (10:01)
[2019-04-19] MEDS: lamoTRIgine 100 MG TABLET PO SCH ×2 (10:02→21:20)
[2019-04-19] MEDS: SERTRALINE 100 MG TABLET PO SCH (10:02)
[2019-04-19] MEDS: FOLIC ACID 1 MG TABLET PO SCH (10:02)
[2019-04-19] MEDS: METOPROLOL TARTRATE 50 MG TABLET PO SCH ×2 (10:02→21:20)
[2019-04-19] MEDS: SIMVASTATIN 20 MG TABLET PO SCH (10:02)
[2019-04-19] MEDS: levETIRAcetam 500 MG TABLET PO SCH ×2 (10:03→21:21)
[2019-04-19] MEDS: DOCUSATE SODIUM 100 MG CAPSULE PO SCH ×2 (10:03→21:20)
[2019-04-19] MEDS: TRIAMCINOLONE 0.1% CREAM 15 GM TUBE TOP SCH ×2 (10:04→21:21)
[2019-04-19] MEDS: PANTOPRAZOLE 40 MG TABLET PO SCH (10:04)
[2019-04-19] MEDS: INSULIN LISPRO 100 UNIT/ML SUBCUT SCH ×4 (10:51→21:22)
[2019-04-19] MEDS: cloNIDine 0.1 MG TABLET PO SCH (21:20)
[2019-04-19] MEDS: ARIPiprazole 10 MG TABLET PO SCH (21:24)
[2019-04-20] MEDS: ALBUTEROL/IPRATROPIUM 3 ML NEB RESP TX SCH ×2 (01:10→07:08)
[2019-04-20 04:31] LABS: Basophils % 0.6 % (0.0-0.8); Eosinophils # 0.2 10*3/uL (0.0-0.87); Eosinophils % 2.6 % (0.00-10.9); Hematocrit 32.3 VOL% (35.7-47.0); Hemoglobin 9.9 GM/DL (12.0-16.0); Immature Granulocytes % 0.4 %; Immature Granulocytes Absolute 0.03 #; Lymphocytes # 2.4 10*3/uL (1.4-4.0); Lymphocytes % 33.5 % (21.3-54.2); Mean Corpuscular HGB Conc 30.7 GM/DL (32-36); Mean Platelet Volume 10.7 FL (9.6-12.0); Monocytes % 8.3 % (1.7-12.7); Neutrophils % 54.6 % (38.7-73.9); Platelet Count 205 T/CUMM (130-400); Red Blood Count 3.55 MC/CUMM (3.8-5.5); Red Cell Distribution Width 13.8 % (9.3-17.3); White Blood Count 7.2 T/CUMM (4-12)
[2019-04-20 05:16] LABS: Albumin 2.9 G/DL (3.4-5.0); Bilirubin,Total 0.4 MG/DL (0.2-1.0); Calcium 8.9 MG/DL (8.5-10.1); Osmolality,Calculated 293.6 MOS/KG (273-304); Total Protein 6.5 G/DL (6.4-8.3)
[2019-04-20] MEDS: INSULIN LISPRO 100 UNIT/ML SUBCUT SCH ×2 (07:40→11:46)
[2019-04-20] MEDS: predniSONE 10 MG TABLET PO SCH (09:02)
[2019-04-20] MEDS: FOLIC ACID 1 MG TABLET PO SCH (09:02)
[2019-04-20] MEDS: PANTOPRAZOLE 40 MG TABLET PO SCH (09:02)
[2019-04-20] MEDS: METOPROLOL TARTRATE 50 MG TABLET PO SCH (09:03)
[2019-04-20] MEDS: TOPIRAMATE 100 MG TABLET PO SCH (09:03)
[2019-04-20] MEDS: lamoTRIgine 100 MG TABLET PO SCH (09:03)
[2019-04-20] MEDS: cloNIDine 0.1 MG TABLET PO SCH (09:03)
[2019-04-20] MEDS: AZITHROMYCIN 250 MG TABLET PO SCH (09:03)
[2019-04-20] MEDS: SIMVASTATIN 20 MG TABLET PO SCH (09:03)
[2019-04-20] MEDS: levETIRAcetam 500 MG TABLET PO SCH (09:03)
[2019-04-20] MEDS: SERTRALINE 100 MG TABLET PO SCH (09:03)
[2019-04-20] MEDS: DOCUSATE SODIUM 100 MG CAPSULE PO SCH (09:03)
[2019-04-20] MEDS: MAGNESIUM CHLORIDE 64 MG TABLET PO SCH (09:03)
[2019-04-20] MEDS: TRIAMCINOLONE 0.1% CREAM 15 GM TUBE TOP SCH (09:04)
[2019-04-20 11:30] VITALS: BP 96/49
== END 2019-04-20 12:41 | disposition swing bed (61) | DRG 101 ==
LOC: EDBD → EDUNIT# → N.ED 06:18 → N.EDINP 07:53 → N.CC 08:34 → N.2E 04-15 11:15
PROVIDERS: ADMIT Internal Medicine; ATTEND Internal Medicine

== ENCOUNTER 2019-07-28 05:28 | Observation (INO) ==
[2019-07-28] MEDS ORDERED: LIDOCAINE 2% 20 ML VIAL ONE (05:59)
[2019-07-28] MEDS ORDERED: LIDOCAINE 1%/EPI INJ 20 ML VIAL ONE (06:27)
[2019-07-28 06:46] LABS: Basophils # 0.1 10*3/uL (0.0-0.2); Basophils % 0.7 % (0.0-0.8); Eosinophils # 0.3 10*3/uL (0.0-0.87); Eosinophils % 3.5 % (0.00-10.9); Hematocrit 35.8 VOL% (35.7-47.0); Hemoglobin 11.4 GM/DL (12.0-16.0); Immature Granulocytes % 0.2 %; Immature Granulocytes Absolute 0.02 #; Lymphocytes # 3.2 10*3/uL (1.4-4.0); Lymphocytes % 35.6 % (21.3-54.2); Mean Corpuscular HGB Conc 31.8 GM/DL (32-36); Mean Corpuscular Volume 89.1 FL (87-102); Mean Platelet Volume 10.8 FL (9.6-12.0); Monocytes % 7.5 % (1.7-12.7); Neutrophils % 52.5 % (38.7-73.9); Platelet Count 248 T/CUMM (130-400); Red Blood Count 4.02 MC/CUMM (3.8-5.5); Red Cell Distribution Width 13.9 % (9.3-17.3); White Blood Count 8.9 T/CUMM (4-12)
[2019-07-28 06:54] LABS: PT Patient Result 10.6 SECS (9.6-12.2); Partial Thromboplastin Time 24.5 SECS (20.8-36.0)
[2019-07-28] MEDS ORDERED: DIPH/TET/ACEL PERT BOOSTER VACCINE 0.5 ML VIAL IM ONE (06:57)
[2019-07-28] MEDS ORDERED: METOPROLOL TARTRATE 5 MG/5 ML VIAL IV STA (06:57)
[2019-07-28 07:03] LABS: Apearance,Urine CLEAR (Clear); Bacteria,Urine Occasional /HPF (Few); Bilirubin,Urine Negative (Negative); Blood, Urine Small mg/dL (Negative); Glucose,Urine (UA) Negative (Negative); Ketones,Urine Negative (Negative); Nitrite,Urine Negative (Negative); Protein,Urine Negative; RBC,Urine 1 /HPF (0-4); Urine Color Colorless (Yellow); Urine Specific Gravity 1.004 (1.001-1.035); Urine Urobilinogen < 2.0 EU/DL (0.2-1.0); WBC,Urine <1 /HPF (0-6)
[2019-07-28 07:11] LABS: Alanine Aminotransferase 21 U/L (13-56); Albumin 3.2 G/DL (3.4-5.0); Alkaline Phosphatase 170 U/L (45-117); Aspartate Amino Transferase 21 U/L (0-37); Bilirubin,Total < 0.39 MG/DL (0.2-1.0); Blood Urea Nitrogen 15 MG/DL (7-18); Calcium 8.6 MG/DL (8.5-10.1); Estimated Glom Filtration Rate 39 ML/MIN; Glucose 94 MG/DL (74-106); Osmolality,Calculated 275.7 MOS/KG (273-304); Total Protein 7.1 G/DL (6.4-8.3)
[2019-07-28] MEDS ORDERED: levETIRAcetam 500 MG/5 ML VIAL IV ONE (08:32)
[2019-07-28] MEDS ORDERED: ACETAMINOPHEN 325 MG TABLET PO PRN (11:22)
[2019-07-28] MEDS ORDERED: ONDANSETRON 4 MG/2 ML VIAL IV PRN (11:22)
[2019-07-28] MEDS ORDERED: hydrOXYzine HCL 10 MG TABLET PO PRN (11:56)
[2019-07-28] MEDS ORDERED: METOPROLOL SUCCINATE XL 50 MG TABLET PO ONE (11:57)
[2019-07-28] MEDS: PANTOPRAZOLE 40 MG TABLET PO SCH (12:25)
[2019-07-28] MEDS: SODIUM CHLORIDE 0.9% 1,000 ML IV SCH (12:25)
[2019-07-28] MEDS: DOCUSATE SODIUM 100 MG CAPSULE PO SCH ×2 (12:25→21:02)
[2019-07-28] MEDS ORDERED: KETOROLAC 15 MG/1 ML VIAL IV PRN (13:05)
[2019-07-28] MEDS ORDERED: ALBUTEROL/IPRATROPIUM 3 ML NEB RESP TX PRN (13:06)
[2019-07-28] MEDS: ALBUTEROL/IPRATROPIUM 3 ML NEB RESP TX SCH ×3 (13:13→19:24)
[2019-07-28] MEDS ORDERED: cloNIDine 0.1 MG TABLET PO PRN (15:40)
[2019-07-28] MEDS ORDERED: levETIRAcetam 250 MG TABLET PO SCH (21:00)
[2019-07-28] MEDS: METOPROLOL TARTRATE 50 MG TABLET PO SCH (21:02)
[2019-07-28] MEDS: POTASSIUM CHLORIDE 8 MEQ CAPSULE PO SCH (21:02)
[2019-07-28] MEDS: TOPIRAMATE 100 MG TABLET PO SCH (21:02)
[2019-07-29] MEDS: SODIUM CHLORIDE 0.9% 1,000 ML IV SCH ×2 (03:28→05:38)
[2019-07-29 04:55] LABS: Basophils # 0.1 10*3/uL (0.0-0.2); Basophils % 0.7 % (0.0-0.8); Eosinophils # 0.3 10*3/uL (0.0-0.87); Eosinophils % 3.7 % (0.00-10.9); Hematocrit 32.6 VOL% (35.7-47.0); Hemoglobin 10.2 GM/DL (12.0-16.0); Immature Granulocytes % 0.3 %; Immature Granulocytes Absolute 0.02 #; Lymphocytes # 2.1 10*3/uL (1.4-4.0); Lymphocytes % 29.7 % (21.3-54.2); Mean Corpuscular HGB Conc 31.3 GM/DL (32-36); Mean Corpuscular Volume 89.6 FL (87-102); Mean Platelet Volume 10.6 FL (9.6-12.0); Monocytes % 8.4 % (1.7-12.7); Neutrophils % 57.2 % (38.7-73.9); Platelet Count 230 T/CUMM (130-400); Red Blood Count 3.64 MC/CUMM (3.8-5.5); Red Cell Distribution Width 14.1 % (9.3-17.3)
[2019-07-29 05:16] LABS: Calcium 8.3 MG/DL (8.5-10.1)
[2019-07-29] MEDS: ALBUTEROL/IPRATROPIUM 3 ML NEB RESP TX SCH (07:30)
[2019-07-29] MEDS: DOCUSATE SODIUM 100 MG CAPSULE PO SCH (08:29)
[2019-07-29] MEDS: TOPIRAMATE 100 MG TABLET PO SCH (08:29)
[2019-07-29] MEDS: METOPROLOL TARTRATE 50 MG TABLET PO SCH (08:29)
[2019-07-29] MEDS: POTASSIUM CHLORIDE 8 MEQ CAPSULE PO SCH (08:29)
[2019-07-29] MEDS: PANTOPRAZOLE 40 MG TABLET PO SCH (08:29)
[2019-07-29 08:59] VITALS: BP 151/79
[2019-07-29] MEDS ORDERED: levETIRAcetam 500 MG TABLET PO SCH (09:00)
[2019-07-29] MEDS ORDERED: ARIPiprazole 5 MG TABLET PO SCH (09:00)
[2019-07-29] MEDS ORDERED: SIMVASTATIN 20 MG TABLET PO SCH (09:00)
[2019-07-29] MEDS ORDERED: MAGNESIUM CHLORIDE 64 MG TABLET PO SCH (09:00)
[2019-07-29] MEDS ORDERED: SERTRALINE 100 MG TABLET PO SCH (09:00)
== END 2019-07-29 11:50 | disposition home health service (06) ==
LOC: EDBD → EDUNIT# → N.ED 05:28 → N.EDINP 05:28 → N.TELES 11:22
PROVIDERS: ADMIT Internal Medicine; ATTEND Internal Medicine

== ENCOUNTER 2019-08-19 22:13 | Observation (INO) ==
[2019-08-19 22:59] LABS: Basophils # 0.1 10*3/uL (0.0-0.2); Basophils % 0.7 % (0.0-0.8); Eosinophils # 0.3 10*3/uL (0.0-0.87); Eosinophils % 3.2 % (0.00-10.9); Hemoglobin 12.2 GM/DL (12.0-16.0); Immature Granulocytes % 0.6 %; Immature Granulocytes Absolute 0.06 #; Lymphocytes # 2.4 10*3/uL (1.4-4.0); Lymphocytes % 24.9 % (21.3-54.2); Mean Corpuscular HGB Conc 31.3 GM/DL (32-36); Monocytes % 7.2 % (1.7-12.7); Neutrophils % 63.4 % (38.7-73.9); Platelet Count 247 T/CUMM (130-400); Red Blood Count 4.38 MC/CUMM (3.8-5.5); Red Cell Distribution Width 13.8 % (9.3-17.3); White Blood Count 9.6 T/CUMM (4-12)
[2019-08-19 23:05] LABS: Apearance,Urine CLEAR (Clear); Bilirubin,Urine Negative (Negative); Blood, Urine Small mg/dL (Negative); Glucose,Urine (UA) Negative (Negative); Ketones,Urine Negative (Negative); Nitrite,Urine Negative (Negative); Protein,Urine 30 MG/DL; Urine Color Straw (Yellow); Urine Specific Gravity 1.008 (1.001-1.035); Urine Urobilinogen < 2.0 EU/DL (0.2-1.0); WBC,Urine 1 /HPF (0-6)
[2019-08-19 23:22] LABS: Alanine Aminotransferase 14 U/L (13-56); Albumin 3.4 G/DL (3.4-5.0); Alkaline Phosphatase 179 U/L (45-117); Aspartate Amino Transferase 17 U/L (0-37); Blood Urea Nitrogen 13 MG/DL (7-18); Calcium 8.7 MG/DL (8.5-10.1); Estimated Glom Filtration Rate 52 ML/MIN; Glucose 100 MG/DL (74-106); Total Protein 7.5 G/DL (6.4-8.3); Troponin I < 0.015 NG/ML (0.00-0.045)
[2019-08-20] MEDS ORDERED: LABETALOL 20 MG/4 ML SYRINGE IV STA (01:14)
[2019-08-20] MEDS ORDERED: ONDANSETRON 4 MG/2 ML VIAL IV PRN ×2 (01:36→08:22)
[2019-08-20] MEDS ORDERED: ACETAMINOPHEN 325 MG TABLET PO PRN ×2 (01:36→08:22)
[2019-08-20] MEDS ORDERED: levETIRAcetam 500 MG/5 ML VIAL IV ONE (01:51)
[2019-08-20] MEDS ORDERED: DEXTROSE 5% NACL 0.45% 1,000 ML IV SCH (02:00)
[2019-08-20] MEDS ORDERED: hydrALAZINE 20 MG/1 ML VIAL ONE (02:03)
[2019-08-20] MEDS ORDERED: ALBUTEROL 0.63 MG/3 ML NEB RESP TX PRN (08:18)
[2019-08-20] MEDS ORDERED: NICOTINE 21 MG/24 HR PATCH TRANSDERM PRN (08:22)
[2019-08-20] MEDS ORDERED: guaiFENesin/DM ER 600-30 MG TABLET PO PRN (08:22)
[2019-08-20] MEDS: ARIPiprazole 10 MG TABLET PO SCH (09:35)
[2019-08-20] MEDS: METOPROLOL TARTRATE 50 MG TABLET PO SCH ×2 (09:36→21:54)
[2019-08-20] MEDS: levETIRAcetam 500 MG TABLET PO SCH (09:36)
[2019-08-20] MEDS: MAGNESIUM CHLORIDE 64 MG TABLET PO SCH (09:36)
[2019-08-20] MEDS: PANTOPRAZOLE 40 MG TABLET PO SCH (09:36)
[2019-08-20] MEDS: TOPIRAMATE 100 MG TABLET PO SCH ×2 (09:36→21:54)
[2019-08-20] MEDS: SIMVASTATIN 20 MG TABLET PO SCH (09:36)
[2019-08-20] MEDS: SERTRALINE 100 MG TABLET PO SCH (09:36)
[2019-08-20] MEDS ORDERED: levETIRAcetam 250 MG TABLET PO SCH (21:00)
[2019-08-21 05:12] LABS: Basophils # 0.1 10*3/uL (0.0-0.2); Basophils % 1.2 % (0.0-0.8); Eosinophils # 0.4 10*3/uL (0.0-0.87); Eosinophils % 4.7 % (0.00-10.9); Hematocrit 37.9 VOL% (35.7-47.0); Immature Granulocytes % 0.1 %; Immature Granulocytes Absolute 0.01 #; Lymphocytes # 2.6 10*3/uL (1.4-4.0); Mean Corpuscular HGB Conc 31.7 GM/DL (32-36); Mean Platelet Volume 10.4 FL (9.6-12.0); Monocytes % 7.4 % (1.7-12.7); Neutrophils % 52.6 % (38.7-73.9); Platelet Count 232 T/CUMM (130-400); Red Blood Count 4.26 MC/CUMM (3.8-5.5); Red Cell Distribution Width 13.6 % (9.3-17.3); White Blood Count 7.6 T/CUMM (4-12)
[2019-08-21 05:41] LABS: Calcium 8.8 MG/DL (8.5-10.1); Osmolality,Calculated 274.5 MOS/KG (273-304)
[2019-08-21] MEDS: TOPIRAMATE 100 MG TABLET PO SCH (09:13)
[2019-08-21] MEDS: SERTRALINE 100 MG TABLET PO SCH (09:13)
[2019-08-21] MEDS: PANTOPRAZOLE 40 MG TABLET PO SCH (09:13)
[2019-08-21] MEDS: MAGNESIUM CHLORIDE 64 MG TABLET PO SCH (09:13)
[2019-08-21] MEDS: METOPROLOL TARTRATE 50 MG TABLET PO SCH (09:13)
[2019-08-21] MEDS: SIMVASTATIN 20 MG TABLET PO SCH (09:14)
[2019-08-21] MEDS: levETIRAcetam 500 MG TABLET PO SCH (09:14)
[2019-08-21] MEDS: ARIPiprazole 10 MG TABLET PO SCH (09:15)
[2019-08-21 10:02] VITALS: BP 153/78
== END 2019-08-21 12:28 | disposition home health service (06) ==
LOC: EDBD → EDUNIT# → N.ED 22:13 → N.EDINP 22:13 → N.TELES 08-20 02:30
PROVIDERS: ADMIT Internal Medicine; ATTEND Internal Medicine

== ENCOUNTER 2020-05-26 12:18 | Inpatient (IN) ==
[2020-05-26 12:52] LABS: Basophils # 0.1 10*3/uL (0.0-0.2); Basophils % 0.2 % (0.0-0.8); Eosinophils % 0.1 % (0.00-10.9); Hematocrit 27.1 VOL% (35.7-47.0); Hemoglobin 8.4 GM/DL (12.0-16.0); Immature Granulocytes % 3.7 %; Immature Granulocytes Absolute 1.25 #; Lymphocytes % 2.8 % (21.3-54.2); Mean Corpuscular Volume 90.6 FL (87-102); Mean Platelet Volume 9.8 FL (9.6-12.0); Monocytes % 4.6 % (1.7-12.7); NRBC # 0.02 10*3/uL; Neutrophils % 88.6 % (38.7-73.9); Platelet Count 378 T/CUMM (130-400); Red Blood Count 2.99 MC/CUMM (3.8-5.5); Red Cell Distribution Width 15.2 % (9.3-17.3); White Blood Count 33.7 T/CUMM (4-12)
[2020-05-26] MEDS ORDERED: PIPERACILLIN/TAZOBACTAM 3,375 MG in SODIUM CHLORIDE 0.9% 100 ML IV STA (12:58)
[2020-05-26] MEDS ORDERED: SODIUM CHLORIDE 0.9% 1,000 ML IV STA ×2 (12:58→13:40)
[2020-05-26] MEDS ORDERED: DEXAMETHASONE 4 MG/1 ML VIAL IV STA ×2 (12:58→13:16)
[2020-05-26 13:12] LABS: Band Neutrophils 6 % (0-10); Lymphocytes 6 % (20-55); Segmented Neutrophils 84 % (50-85); Total Cells Counted 100
[2020-05-26 13:13] LABS: Anisocytosis 1+; Hypersegmented Neutrophil Few; Hypochromasia 1+; Macrocytosis Slight; Platelet Estimate Normal
[2020-05-26 13:21] LABS: INR 1.3; PT Patient Result 13.8 SECS (9.8-11.9)
[2020-05-26 13:29] LABS: Albumin 1.7 G/DL (3.4-5.0); Bilirubin,Total 0.4 MG/DL (0.2-1.0); Calcium 8.3 MG/DL (8.5-10.1); Osmolality,Calculated 306.1 MOS/KG (273-304); Total Protein 6.6 G/DL (6.4-8.3)
[2020-05-26] MEDS ORDERED: LEVOFLOXACIN INJ 500 MG in PREMIX 1 EACH IV STA (13:33)
[2020-05-26 13:56] LABS: Bilirubin,Urine Negative (Negative); Blood, Urine Negative (Negative); Glucose,Urine (UA) Negative (Negative); Hyaline Casts,Urine 3 /LPF (0-3); Ketones,Urine Negative (Negative); Mucus,Urine Occasional /LPF (Occasional); Nitrite,Urine Negative (Negative); Protein,Urine 30 MG/DL; RBC,Urine <1 /HPF (0-4); Squamous Epithelial Cell,Urine Occasional /HPF (0-10); Urine Appearance CLEAR (Clear); Urine Color Yellow (Yellow); Urine Specific Gravity 1.014 (1.001-1.035); Urine Urobilinogen < 2.0 EU/DL (0.2-1.0)
[2020-05-26] MEDS ORDERED: ACETAMINOPHEN 325 MG TABLET PO PRN (14:45)
[2020-05-26] MEDS ORDERED: ONDANSETRON 4 MG/2 ML VIAL IV PRN (14:45)
[2020-05-26] MEDS ORDERED: DEXTROSE 50% 25 GM/50 ML VIAL IV PRN (14:45)
[2020-05-26] MEDS ORDERED: GLUCAGON 1 MG VIAL IM PRN (14:45)
[2020-05-26] MEDS: ENOXAPARIN 40 MG/0.4 ML SYRINGE SUBCUT SCH (15:29)
[2020-05-26] MEDS: SODIUM CHLORIDE 0.9% 1,000 ML IV SCH (15:29)
[2020-05-26] MEDS ORDERED: hydrOXYzine HCL 10 MG TABLET PO PRN (16:20)
[2020-05-26] MEDS: INSULIN LISPRO 100 UNIT/ML SUBCUT SCH ×2 (16:34→21:24)
[2020-05-26] MEDS: ALBUTEROL/IPRATROPIUM 3 ML NEB RESP TX SCH (19:25)
[2020-05-26] MEDS: methylPREDNISolone SOD SUC 40 MG/1 ML VIAL IV SCH (21:33)
[2020-05-26] MEDS: DOCUSATE SODIUM 100 MG CAPSULE PO SCH (21:35)
[2020-05-26] MEDS: METOPROLOL TARTRATE 50 MG TABLET PO SCH (21:35)
[2020-05-26] MEDS: levETIRAcetam 500 MG TABLET PO SCH (21:36)
[2020-05-26] MEDS: GABAPENTIN 100 MG CAPSULE PO SCH (21:36)
[2020-05-26] MEDS: lamoTRIgine 100 MG TABLET PO SCH (21:37)
[2020-05-26] MEDS: TOPIRAMATE 100 MG TABLET PO SCH (21:37)
[2020-05-26] MEDS: PIPERACILLIN/TAZOBACTAM 3,375 MG in SODIUM CHLORIDE 0.9% 100 ML IV SCH (21:58)
[2020-05-27] MEDS: methylPREDNISolone SOD SUC 40 MG/1 ML VIAL IV SCH ×3 (04:55→21:19)
[2020-05-27] MEDS: SODIUM CHLORIDE 0.9% 1,000 ML IV SCH ×4 (04:55→22:45)
[2020-05-27] MEDS: PIPERACILLIN/TAZOBACTAM 3,375 MG in SODIUM CHLORIDE 0.9% 100 ML IV SCH (05:48)
[2020-05-27 05:55] LABS: Basophils # 0.1 10*3/uL (0.0-0.2); Basophils % 0.2 % (0.0-0.8); Hematocrit 23.5 VOL% (35.7-47.0); Hemoglobin 7.3 GM/DL (12.0-16.0); Immature Granulocytes % 3.9 %; Immature Granulocytes Absolute 1.07 #; Lymphocytes # 1.3 10*3/uL (1.4-4.0); Lymphocytes % 4.9 % (21.3-54.2); Mean Corpuscular HGB Conc 31.1 GM/DL (32-36); Mean Corpuscular Volume 90.7 FL (87-102); Mean Platelet Volume 10.1 FL (9.6-12.0); Monocytes % 3.7 % (1.7-12.7); NRBC # 0.02 10*3/uL; Neutrophils % 87.3 % (38.7-73.9); Platelet Count 268 T/CUMM (130-400); Red Blood Count 2.59 MC/CUMM (3.8-5.5); Red Cell Distribution Width 15.3 % (9.3-17.3); White Blood Count 27.4 T/CUMM (4-12)
[2020-05-27 06:39] LABS: Hypochromasia 2+; Lymphocytes 5 % (20-55); Microcytosis 1+; Nucleated Red Blood Cells 1 (0-5); Ovalocytes Slight; Platelet Estimate Adequate; Segmented Neutrophils 93 % (50-85); Total Cells Counted 100
[2020-05-27] MEDS: ALBUTEROL/IPRATROPIUM 3 ML NEB RESP TX SCH ×3 (07:30→19:11)
[2020-05-27] MEDS: INSULIN LISPRO 100 UNIT/ML SUBCUT SCH ×4 (08:15→21:19)
[2020-05-27] MEDS: ARIPiprazole 10 MG TABLET PO SCH (08:16)
[2020-05-27] MEDS: MULTIVITAMIN (CENTRUM) TABLET PO SCH (08:16)
[2020-05-27] MEDS: PANTOPRAZOLE 40 MG TABLET PO SCH (08:17)
[2020-05-27] MEDS: lamoTRIgine 100 MG TABLET PO SCH ×2 (08:17→21:20)
[2020-05-27] MEDS: GABAPENTIN 100 MG CAPSULE PO SCH ×3 (08:18→21:20)
[2020-05-27] MEDS: METOPROLOL TARTRATE 50 MG TABLET PO SCH ×2 (08:18→21:20)
[2020-05-27] MEDS: TOPIRAMATE 100 MG TABLET PO SCH ×2 (08:18→21:20)
[2020-05-27] MEDS: SERTRALINE 100 MG TABLET PO SCH (08:18)
[2020-05-27] MEDS: MAGNESIUM CHLORIDE 64 MG TABLET PO SCH (08:18)
[2020-05-27] MEDS: DOCUSATE SODIUM 100 MG CAPSULE PO SCH ×2 (08:19→21:20)
[2020-05-27] MEDS: levETIRAcetam 500 MG TABLET PO SCH ×2 (08:19→21:20)
[2020-05-27 08:21] LABS: Alanine Aminotransferase 47 U/L (13-56); Albumin 1.5 G/DL (3.4-5.0); Alkaline Phosphatase 192 U/L (45-117); Aspartate Amino Transferase 26 U/L (0-37); Bilirubin,Total < 0.39 MG/DL (0.2-1.0); Blood Urea Nitrogen 36 MG/DL (7-18); Calcium 8.3 MG/DL (8.5-10.1); Estimated Glom Filtration Rate 38 ML/MIN; Glucose 108 MG/DL (74-106); Osmolality,Calculated 313.4 MOS/KG (273-304); Total Protein 6.7 G/DL (6.4-8.3)
[2020-05-27] MEDS ORDERED: VANCOMYCIN INJ 750 MG in SODIUM CHLORIDE 0.9% 250 ML IV PRN (12:25)
[2020-05-27] MEDS ORDERED: VANCOMYCIN INJ 1,000 MG in SODIUM CHLORIDE 0.9% 250 ML IV ONE (13:00)
[2020-05-27] MEDS: ENOXAPARIN 40 MG/0.4 ML SYRINGE SUBCUT SCH (21:20)
[2020-05-28] MEDS: methylPREDNISolone SOD SUC 40 MG/1 ML VIAL IV SCH ×2 (05:36→14:15)
[2020-05-28 06:05] LABS: Calcium 9.1 MG/DL (8.5-10.1)
[2020-05-28] MEDS: ALBUTEROL/IPRATROPIUM 3 ML NEB RESP TX SCH ×3 (07:30→19:16)
[2020-05-28] MEDS: INSULIN LISPRO 100 UNIT/ML SUBCUT SCH ×4 (08:56→21:15)
[2020-05-28] MEDS: ARIPiprazole 10 MG TABLET PO SCH (09:10)
[2020-05-28] MEDS: MULTIVITAMIN (CENTRUM) TABLET PO SCH (09:10)
[2020-05-28] MEDS: GABAPENTIN 100 MG CAPSULE PO SCH ×3 (09:11→20:50)
[2020-05-28] MEDS: PANTOPRAZOLE 40 MG TABLET PO SCH (09:11)
[2020-05-28] MEDS: SERTRALINE 100 MG TABLET PO SCH (09:11)
[2020-05-28] MEDS: MAGNESIUM CHLORIDE 64 MG TABLET PO SCH (09:11)
[2020-05-28] MEDS: levETIRAcetam 500 MG TABLET PO SCH ×2 (09:11→20:49)
[2020-05-28] MEDS: TOPIRAMATE 100 MG TABLET PO SCH ×2 (09:11→20:50)
[2020-05-28] MEDS: lamoTRIgine 100 MG TABLET PO SCH ×2 (09:11→20:50)
[2020-05-28] MEDS: DOCUSATE SODIUM 100 MG CAPSULE PO SCH ×2 (09:11→20:50)
[2020-05-28] MEDS: METOPROLOL TARTRATE 50 MG TABLET PO SCH ×2 (09:11→20:50)
[2020-05-28] MEDS: SODIUM CHLORIDE 0.9% 1,000 ML IV SCH ×2 (12:23→23:52)
[2020-05-28] MEDS: DEXTROSE 5% 1,000 ML IV SCH (16:59)
[2020-05-28] MEDS: ENOXAPARIN 40 MG/0.4 ML SYRINGE SUBCUT SCH (20:51)
[2020-05-29] MEDS: methylPREDNISolone SOD SUC 40 MG/1 ML VIAL IV SCH ×4 (00:09→20:31)
[2020-05-29] MEDS: DEXTROSE 5% 1,000 ML IV SCH ×2 (03:26→16:25)
[2020-05-29 05:59] LABS: Basophils % 0.2 % (0.0-0.8); Eosinophils % 0.1 % (0.00-10.9); Hematocrit 26.2 VOL% (35.7-47.0); Hemoglobin 7.8 GM/DL (12.0-16.0); Immature Granulocytes % 2.4 %; Immature Granulocytes Absolute 0.57 #; Lymphocytes # 1.4 10*3/uL (1.4-4.0); Lymphocytes % 5.9 % (21.3-54.2); Mean Corpuscular HGB Conc 29.8 GM/DL (32-36); Mean Corpuscular Volume 94.9 FL (87-102); Mean Platelet Volume 11.4 FL (9.6-12.0); Monocytes % 1.9 % (1.7-12.7); NRBC # 0.02 10*3/uL; Neutrophils % 89.5 % (38.7-73.9); Platelet Count 241 T/CUMM (130-400); Red Blood Count 2.76 MC/CUMM (3.8-5.5); Red Cell Distribution Width 15.9 % (9.3-17.3); White Blood Count 23.8 T/CUMM (4-12)
[2020-05-29 06:02] LABS: Albumin 1.4 G/DL (3.4-5.0); Bilirubin,Total 0.5 MG/DL (0.2-1.0); Calcium 8.6 MG/DL (8.5-10.1); Osmolality,Calculated 310.7 MOS/KG (273-304); Total Protein 6.6 G/DL (6.4-8.3)
[2020-05-29 06:32] LABS: Band Neutrophils 1 % (0-10); Hypochromasia Slight; Lymphocytes 5 % (20-55); Platelet Estimate Normal; Segmented Neutrophils 94 % (50-85); Total Cells Counted 100
[2020-05-29 06:33] LABS: Polychromasia Slight; Target Cells Slight
[2020-05-29] MEDS: ALBUTEROL/IPRATROPIUM 3 ML NEB RESP TX SCH ×3 (07:24→19:42)
[2020-05-29] MEDS: INSULIN LISPRO 100 UNIT/ML SUBCUT SCH ×4 (08:22→20:52)
[2020-05-29] MEDS: TOPIRAMATE 100 MG TABLET PO SCH ×2 (08:51→20:51)
[2020-05-29] MEDS: MAGNESIUM CHLORIDE 64 MG TABLET PO SCH (08:51)
[2020-05-29] MEDS: SERTRALINE 100 MG TABLET PO SCH (08:51)
[2020-05-29] MEDS: ARIPiprazole 10 MG TABLET PO SCH (08:51)
[2020-05-29] MEDS: MULTIVITAMIN (CENTRUM) TABLET PO SCH (08:51)
[2020-05-29] MEDS: DOCUSATE SODIUM 100 MG CAPSULE PO SCH ×2 (08:52→20:51)
[2020-05-29] MEDS: lamoTRIgine 100 MG TABLET PO SCH ×2 (08:52→20:50)
[2020-05-29] MEDS: levETIRAcetam 500 MG TABLET PO SCH ×2 (08:52→20:51)
[2020-05-29] MEDS: METOPROLOL TARTRATE 50 MG TABLET PO SCH ×2 (08:52→20:51)
[2020-05-29] MEDS: PANTOPRAZOLE 40 MG TABLET PO SCH (08:55)
[2020-05-29] MEDS: GABAPENTIN 100 MG CAPSULE PO SCH ×3 (08:55→20:50)
[2020-05-29] MEDS ORDERED: FUROSEMIDE 20 MG TABLET PO SCH (09:00)
[2020-05-29] MEDS ORDERED: VANCOMYCIN INJ 750 MG in SODIUM CHLORIDE 0.9% 250 ML IV SCH ×2 (10:00→22:00)
[2020-05-29] MEDS: ENOXAPARIN 40 MG/0.4 ML SYRINGE SUBCUT SCH (20:52)
[2020-05-30] MEDS: methylPREDNISolone SOD SUC 40 MG/1 ML VIAL IV SCH ×3 (04:37→21:55)
[2020-05-30 06:05] LABS: Basophils % 0.1 % (0.0-0.8); Eosinophils % 0.1 % (0.00-10.9); Hematocrit 24.6 VOL% (35.7-47.0); Hemoglobin 7.5 GM/DL (12.0-16.0); Immature Granulocytes % 3.1 %; Immature Granulocytes Absolute 0.66 #; Lymphocytes # 1.6 10*3/uL (1.4-4.0); Lymphocytes % 7.5 % (21.3-54.2); Mean Corpuscular HGB Conc 30.5 GM/DL (32-36); Mean Corpuscular Volume 92.8 FL (87-102); Mean Platelet Volume 10.6 FL (9.6-12.0); Monocytes % 2.3 % (1.7-12.7); NRBC # 0.03 10*3/uL; Neutrophils % 86.9 % (38.7-73.9); Platelet Count 323 T/CUMM (130-400); Red Blood Count 2.65 MC/CUMM (3.8-5.5); Red Cell Distribution Width 15.6 % (9.3-17.3); White Blood Count 21.5 T/CUMM (4-12)
[2020-05-30 06:25] LABS: Albumin 1.4 G/DL (3.4-5.0); Bilirubin,Total 0.7 MG/DL (0.2-1.0); Calcium 8.2 MG/DL (8.5-10.1); Osmolality,Calculated 294.8 MOS/KG (273-304)
[2020-05-30] MEDS: DEXTROSE 5% 1,000 ML IV SCH ×2 (06:30→17:25)
[2020-05-30 06:45] LABS: Anisocytosis 1+; Band Neutrophils 7 % (0-10); Lymphocytes 15 % (20-55); Platelet Estimate Normal; Segmented Neutrophils 76 % (50-85); Total Cells Counted 100
[2020-05-30] MEDS: ALBUTEROL/IPRATROPIUM 3 ML NEB RESP TX SCH ×3 (07:35→19:20)
[2020-05-30] MEDS: INSULIN LISPRO 100 UNIT/ML SUBCUT SCH ×4 (07:49→22:10)
[2020-05-30] MEDS: levETIRAcetam LIQUID 100 MG/ML 30 ML/BOTTLE PO SCH ×2 (10:42→22:06)
[2020-05-30] MEDS: DOCUSATE SODIUM 100 MG/10 ML UDCUP PO SCH ×2 (10:42→22:04)
[2020-05-30] MEDS: GABAPENTIN 50 MG/ML 30 ML/BOTTLE PO SCH ×3 (10:42→22:05)
[2020-05-30] MEDS: MULTIVITAMIN LIQUID (CENTRUM) 60 ML BOTTLE PO SCH (10:42)
[2020-05-30] MEDS: ARIPiprazole 10 MG TABLET PO SCH (10:43)
[2020-05-30] MEDS: SERTRALINE 100 MG TABLET PO SCH (10:43)
[2020-05-30] MEDS: METOPROLOL TARTRATE 50 MG TABLET PO SCH ×2 (10:43→22:07)
[2020-05-30] MEDS: FUROSEMIDE 40 MG/5 ML UDCUP PO SCH (10:43)
[2020-05-30] MEDS: lamoTRIgine 100 MG TABLET PO SCH ×2 (10:43→22:07)
[2020-05-30] MEDS: MAGNESIUM CHLORIDE 64 MG TABLET PO SCH (10:43)
[2020-05-30] MEDS: TOPIRAMATE 100 MG TABLET PO SCH ×2 (10:43→22:18)
[2020-05-30] MEDS: VANCOMYCIN INJ 750 MG in SODIUM CHLORIDE 0.9% 250 ML IV SCH (21:59)
[2020-05-30] MEDS: ENOXAPARIN 40 MG/0.4 ML SYRINGE SUBCUT SCH (22:18)
[2020-05-31] MEDS: methylPREDNISolone SOD SUC 40 MG/1 ML VIAL IV SCH ×3 (05:20→21:48)
[2020-05-31] MEDS: DEXTROSE 5% 1,000 ML IV SCH ×3 (05:29→16:30)
[2020-05-31] MEDS: OMEPRAZOLE ODT 20 MG TABLET PO SCH (05:45)
[2020-05-31] MEDS ORDERED: LANSOPRAZOLE ODT 30 MG TABLET PO SCH (06:30)
[2020-05-31] MEDS: ALBUTEROL/IPRATROPIUM 3 ML NEB RESP TX SCH ×3 (07:23→19:33)
[2020-05-31] MEDS: INSULIN LISPRO 100 UNIT/ML SUBCUT SCH ×4 (08:33→21:47)
[2020-05-31] MEDS: MULTIVITAMIN LIQUID (CENTRUM) 60 ML BOTTLE PO SCH (10:06)
[2020-05-31] MEDS: FUROSEMIDE 40 MG/5 ML UDCUP PO SCH (10:07)
[2020-05-31] MEDS: GABAPENTIN 50 MG/ML 30 ML/BOTTLE PO SCH ×3 (10:07→21:45)
[2020-05-31] MEDS: TOPIRAMATE 100 MG TABLET PO SCH ×2 (10:08→21:46)
[2020-05-31] MEDS: lamoTRIgine 100 MG TABLET PO SCH ×2 (10:08→21:46)
[2020-05-31] MEDS: SERTRALINE 100 MG TABLET PO SCH (10:08)
[2020-05-31] MEDS: ARIPiprazole 10 MG TABLET PO SCH (10:08)
[2020-05-31] MEDS: DOCUSATE SODIUM 100 MG/10 ML UDCUP PO SCH ×2 (10:08→21:46)
[2020-05-31] MEDS: METOPROLOL TARTRATE 50 MG TABLET PO SCH ×2 (10:09→21:46)
[2020-05-31] MEDS: MAGNESIUM CHLORIDE 64 MG TABLET PO SCH (10:09)
[2020-05-31] MEDS: levETIRAcetam LIQUID 100 MG/ML 30 ML/BOTTLE PO SCH ×2 (10:12→21:42)
[2020-05-31] MEDS: ENOXAPARIN 40 MG/0.4 ML SYRINGE SUBCUT SCH (21:47)
[2020-05-31] MEDS: VANCOMYCIN INJ 750 MG in SODIUM CHLORIDE 0.9% 250 ML IV SCH (21:49)
[2020-06-01] MEDS: methylPREDNISolone SOD SUC 40 MG/1 ML VIAL IV SCH ×3 (04:59→21:09)
[2020-06-01] MEDS: DEXTROSE 5% 1,000 ML IV SCH ×2 (05:00→14:46)
[2020-06-01] MEDS: OMEPRAZOLE ODT 20 MG TABLET PO SCH (05:36)
[2020-06-01 06:02] LABS: Basophils % 0.1 % (0.0-0.8); Eosinophils % 0.1 % (0.00-10.9); Hematocrit 24.3 VOL% (35.7-47.0); Hemoglobin 7.6 GM/DL (12.0-16.0); Immature Granulocytes % 1.6 %; Immature Granulocytes Absolute 0.39 #; Lymphocytes # 1.4 10*3/uL (1.4-4.0); Lymphocytes % 5.9 % (21.3-54.2); Mean Corpuscular HGB Conc 31.3 GM/DL (32-36); Mean Corpuscular Volume 89.7 FL (87-102); Mean Platelet Volume 11.8 FL (9.6-12.0); Monocytes % 2.2 % (1.7-12.7); NRBC # 0.02 10*3/uL; Neutrophils % 90.1 % (38.7-73.9); Platelet Count 313 T/CUMM (130-400); Red Blood Count 2.71 MC/CUMM (3.8-5.5); Red Cell Distribution Width 15.5 % (9.3-17.3)
[2020-06-01 06:11] LABS: Osmolality,Calculated 283.4 MOS/KG (273-304)
[2020-06-01 06:54] LABS: Band Neutrophils 1 % (0-10); Lymphocytes 7 % (20-55); Platelet Estimate Normal; Segmented Neutrophils 89 % (50-85); Total Cells Counted 100
[2020-06-01 06:55] LABS: Hypochromasia Slight
[2020-06-01] MEDS: ALBUTEROL/IPRATROPIUM 3 ML NEB RESP TX SCH ×3 (07:30→20:05)
[2020-06-01] MEDS: INSULIN LISPRO 100 UNIT/ML SUBCUT SCH ×4 (07:36→21:25)
[2020-06-01] MEDS: DOCUSATE SODIUM 100 MG/10 ML UDCUP PO SCH ×2 (08:46→21:24)
[2020-06-01] MEDS: MAGNESIUM CHLORIDE 64 MG TABLET PO SCH (08:46)
[2020-06-01] MEDS: METOPROLOL TARTRATE 50 MG TABLET PO SCH ×2 (08:46→21:24)
[2020-06-01] MEDS: SERTRALINE 100 MG TABLET PO SCH (08:46)
[2020-06-01] MEDS: ARIPiprazole 10 MG TABLET PO SCH (08:46)
[2020-06-01] MEDS: lamoTRIgine 100 MG TABLET PO SCH ×2 (08:46→21:23)
[2020-06-01] MEDS: FUROSEMIDE 40 MG/5 ML UDCUP PO SCH (08:46)
[2020-06-01] MEDS: levETIRAcetam LIQUID 100 MG/ML 30 ML/BOTTLE PO SCH ×2 (08:47→21:24)
[2020-06-01] MEDS: MULTIVITAMIN LIQUID (CENTRUM) 60 ML BOTTLE PO SCH (08:47)
[2020-06-01] MEDS: GABAPENTIN 50 MG/ML 30 ML/BOTTLE PO SCH ×3 (08:47→21:24)
[2020-06-01] MEDS: TOPIRAMATE 100 MG TABLET PO SCH ×2 (09:09→21:23)
[2020-06-01] MEDS: ENOXAPARIN 40 MG/0.4 ML SYRINGE SUBCUT SCH (21:23)
[2020-06-01] MEDS: VANCOMYCIN INJ 750 MG in SODIUM CHLORIDE 0.9% 250 ML IV SCH ×2 (21:29→22:12)
[2020-06-02] MEDS: DEXTROSE 5% 1,000 ML IV SCH ×2 (05:15→14:59)
[2020-06-02] MEDS: methylPREDNISolone SOD SUC 40 MG/1 ML VIAL IV SCH ×3 (05:16→20:39)
[2020-06-02 05:41] LABS: Basophils % 0.1 % (0.0-0.8); Eosinophils % 0.1 % (0.00-10.9); Hematocrit 23.3 VOL% (35.7-47.0); Hemoglobin 7.1 GM/DL (12.0-16.0); Immature Granulocytes % 2.1 %; Immature Granulocytes Absolute 0.48 #; Lymphocytes # 1.4 10*3/uL (1.4-4.0); Lymphocytes % 6.2 % (21.3-54.2); Mean Corpuscular HGB Conc 30.5 GM/DL (32-36); Mean Corpuscular Volume 88.6 FL (87-102); Mean Platelet Volume 10.6 FL (9.6-12.0); Monocytes % 2.1 % (1.7-12.7); Neutrophils % 89.4 % (38.7-73.9); Platelet Count 440 T/CUMM (130-400); Red Blood Count 2.63 MC/CUMM (3.8-5.5); Red Cell Distribution Width 15.5 % (9.3-17.3); White Blood Count 22.5 T/CUMM (4-12)
[2020-06-02 05:59] LABS: Calcium 7.7 MG/DL (8.5-10.1); Osmolality,Calculated 285.3 MOS/KG (273-304)
[2020-06-02] MEDS: OMEPRAZOLE ODT 20 MG TABLET PO SCH (07:09)
[2020-06-02] MEDS: ALBUTEROL/IPRATROPIUM 3 ML NEB RESP TX SCH ×3 (07:24→19:16)
[2020-06-02] MEDS: INSULIN LISPRO 100 UNIT/ML SUBCUT SCH ×4 (07:56→20:33)
[2020-06-02 08:06] LABS: Anisocytosis 1+; Band Neutrophils 1 % (0-10); Hypersegmented Neutrophil SLIGHT; Lymphocytes 9 % (20-55); Platelet Estimate Normal; Polychromasia Slight; Segmented Neutrophils 90 % (50-85); Total Cells Counted 100
[2020-06-02] MEDS: MULTIVITAMIN LIQUID (CENTRUM) 60 ML BOTTLE PO SCH (09:12)
[2020-06-02] MEDS: ARIPiprazole 10 MG TABLET PO SCH (09:12)
[2020-06-02] MEDS: levETIRAcetam LIQUID 100 MG/ML 30 ML/BOTTLE PO SCH ×2 (09:13→20:30)
[2020-06-02] MEDS: FUROSEMIDE 40 MG/5 ML UDCUP PO SCH (09:13)
[2020-06-02] MEDS: lamoTRIgine 100 MG TABLET PO SCH ×2 (09:13→20:29)
[2020-06-02] MEDS: DOCUSATE SODIUM 100 MG/10 ML UDCUP PO SCH ×2 (09:13→20:28)
[2020-06-02] MEDS: GABAPENTIN 50 MG/ML 30 ML/BOTTLE PO SCH ×3 (09:14→20:30)
[2020-06-02] MEDS: MAGNESIUM CHLORIDE 64 MG TABLET PO SCH (09:14)
[2020-06-02] MEDS: METOPROLOL TARTRATE 50 MG TABLET PO SCH ×2 (09:14→20:29)
[2020-06-02] MEDS: SERTRALINE 100 MG TABLET PO SCH (09:14)
[2020-06-02] MEDS: TOPIRAMATE 100 MG TABLET PO SCH ×2 (09:14→20:29)
[2020-06-02 13:09] LABS: Bilirubin,Urine Negative (Negative); Blood, Urine Negative (Negative); Glucose,Urine (UA) Negative (Negative); Ketones,Urine Negative (Negative); Nitrite,Urine Negative (Negative); Protein,Urine Negative; RBC,Urine 1 /HPF (0-4); Urine Appearance CLEAR (Clear); Urine Color Straw (Yellow); Urine Specific Gravity 1.003 (1.001-1.035); Urine Urobilinogen < 2.0 EU/DL (0.2-1.0); WBC,Urine 1 /HPF (0-6)
[2020-06-02] MEDS: VANCOMYCIN INJ 750 MG in SODIUM CHLORIDE 0.9% 250 ML IV SCH (20:31)
[2020-06-02] MEDS: ENOXAPARIN 40 MG/0.4 ML SYRINGE SUBCUT SCH (20:31)
[2020-06-03] MEDS: ACETAMINOPHEN 325 MG/10.15 ML UDCUP PO PRN ×2 (00:08→12:43)
[2020-06-03] MEDS: methylPREDNISolone SOD SUC 40 MG/1 ML VIAL IV SCH ×3 (04:01→22:25)
[2020-06-03 05:09] LABS: Basophils % 0.1 % (0.0-0.8); Eosinophils % 0.2 % (0.00-10.9); Hematocrit 25.4 VOL% (35.7-47.0); Hemoglobin 7.8 GM/DL (12.0-16.0); Immature Granulocytes % 1.9 %; Immature Granulocytes Absolute 0.32 #; Lymphocytes # 1.6 10*3/uL (1.4-4.0); Lymphocytes % 9.4 % (21.3-54.2); Mean Corpuscular HGB Conc 30.7 GM/DL (32-36); Mean Corpuscular Volume 90.4 FL (87-102); Mean Platelet Volume 10.8 FL (9.6-12.0); Monocytes % 2.7 % (1.7-12.7); Neutrophils % 85.7 % (38.7-73.9); Platelet Count 404 T/CUMM (130-400); Red Blood Count 2.81 MC/CUMM (3.8-5.5); Red Cell Distribution Width 15.3 % (9.3-17.3)
[2020-06-03] MEDS: DEXTROSE 5% 1,000 ML IV SCH ×2 (05:21→16:44)
[2020-06-03 05:29] LABS: Osmolality,Calculated 281.4 MOS/KG (273-304)
[2020-06-03] MEDS: OMEPRAZOLE ODT 20 MG TABLET PO SCH (06:19)
[2020-06-03] MEDS: ALBUTEROL/IPRATROPIUM 3 ML NEB RESP TX SCH ×3 (07:23→20:25)
[2020-06-03] MEDS: GABAPENTIN 50 MG/ML 30 ML/BOTTLE PO SCH ×3 (09:38→22:27)
[2020-06-03] MEDS: INSULIN LISPRO 100 UNIT/ML SUBCUT SCH ×4 (09:38→22:33)
[2020-06-03] MEDS: ARIPiprazole 10 MG TABLET PO SCH (09:39)
[2020-06-03] MEDS: lamoTRIgine 100 MG TABLET PO SCH ×2 (09:39→22:31)
[2020-06-03] MEDS: MULTIVITAMIN LIQUID (CENTRUM) 60 ML BOTTLE PO SCH (09:39)
[2020-06-03] MEDS: SERTRALINE 100 MG TABLET PO SCH (09:39)
[2020-06-03] MEDS: DOCUSATE SODIUM 100 MG/10 ML UDCUP PO SCH ×2 (09:39→22:22)
[2020-06-03] MEDS: METOPROLOL TARTRATE 50 MG TABLET PO SCH ×2 (09:39→22:32)
[2020-06-03] MEDS: levETIRAcetam LIQUID 100 MG/ML 30 ML/BOTTLE PO SCH ×2 (09:39→22:23)
[2020-06-03] MEDS: TOPIRAMATE 100 MG TABLET PO SCH ×2 (09:39→22:32)
[2020-06-03] MEDS: MAGNESIUM CHLORIDE 64 MG TABLET PO SCH (09:40)
[2020-06-03] MEDS: FUROSEMIDE 40 MG/5 ML UDCUP PO SCH (09:40)
[2020-06-03] MEDS: VANCOMYCIN INJ 750 MG in SODIUM CHLORIDE 0.9% 250 ML IV SCH (22:19)
[2020-06-03] MEDS: ENOXAPARIN 40 MG/0.4 ML SYRINGE SUBCUT SCH (22:28)
[2020-06-04] MEDS: DEXTROSE 5% 1,000 ML IV SCH ×3 (01:00→21:00)
[2020-06-04] MEDS: methylPREDNISolone SOD SUC 40 MG/1 ML VIAL IV SCH ×3 (05:55→21:38)
[2020-06-04] MEDS: OMEPRAZOLE ODT 20 MG TABLET PO SCH (05:57)
[2020-06-04] MEDS: ALBUTEROL/IPRATROPIUM 3 ML NEB RESP TX SCH ×3 (07:21→19:57)
[2020-06-04] MEDS: INSULIN LISPRO 100 UNIT/ML SUBCUT SCH ×4 (07:53→21:47)
[2020-06-04] MEDS: MULTIVITAMIN LIQUID (CENTRUM) 60 ML BOTTLE PO SCH (10:19)
[2020-06-04] MEDS: ARIPiprazole 10 MG TABLET PO SCH (10:19)
[2020-06-04] MEDS: DOCUSATE SODIUM 100 MG/10 ML UDCUP PO SCH ×2 (10:19→21:41)
[2020-06-04] MEDS: TOPIRAMATE 100 MG TABLET PO SCH ×2 (10:20→21:42)
[2020-06-04] MEDS: lamoTRIgine 100 MG TABLET PO SCH ×2 (10:20→21:42)
[2020-06-04] MEDS: levETIRAcetam LIQUID 100 MG/ML 30 ML/BOTTLE PO SCH ×2 (10:20→21:49)
[2020-06-04] MEDS: SERTRALINE 100 MG TABLET PO SCH (10:20)
[2020-06-04] MEDS: GABAPENTIN 50 MG/ML 30 ML/BOTTLE PO SCH ×3 (10:20→21:43)
[2020-06-04] MEDS: METOPROLOL TARTRATE 50 MG TABLET PO SCH ×2 (10:20→21:42)
[2020-06-04] MEDS: MAGNESIUM CHLORIDE 64 MG TABLET PO SCH (10:20)
[2020-06-04] MEDS: FUROSEMIDE 40 MG/5 ML UDCUP PO SCH (10:20)
[2020-06-04] MEDS ORDERED: SODIUM PHOSPHATE ENEMA 133 ML BOTTLE RECTAL PRN ×2 (12:03→23:05)
[2020-06-04] MEDS ORDERED: SODIUM PHOSPHATE ENEMA 133 ML BOTTLE RECTAL ONE (12:03)
[2020-06-04] MEDS: POLYETHYLENE GLYCOL POWDER 17 GM PACK PO SCH ×2 (12:30→21:41)
[2020-06-04] MEDS: VANCOMYCIN INJ 750 MG in SODIUM CHLORIDE 0.9% 250 ML IV SCH (21:37)
[2020-06-04] MEDS: ENOXAPARIN 40 MG/0.4 ML SYRINGE SUBCUT SCH (21:43)
[2020-06-05] MEDS: ACETAMINOPHEN 325 MG/10.15 ML UDCUP PO PRN (04:42)
[2020-06-05] MEDS: methylPREDNISolone SOD SUC 40 MG/1 ML VIAL IV SCH ×3 (04:47→22:05)
[2020-06-05] MEDS: DEXTROSE 5% 1,000 ML IV SCH ×3 (04:49→17:45)
[2020-06-05] MEDS: OMEPRAZOLE ODT 20 MG TABLET PO SCH (05:52)
[2020-06-05 06:01] LABS: Basophils % 0.1 % (0.0-0.8); Eosinophils % 0.3 % (0.00-10.9); Hematocrit 27.8 VOL% (35.7-47.0); Hemoglobin 8.6 GM/DL (12.0-16.0); Immature Granulocytes % 1.6 %; Immature Granulocytes Absolute 0.21 #; Lymphocytes # 1.7 10*3/uL (1.4-4.0); Lymphocytes % 13.1 % (21.3-54.2); Mean Corpuscular HGB Conc 30.9 GM/DL (32-36); Mean Corpuscular Volume 90.6 FL (87-102); Mean Platelet Volume 12.2 FL (9.6-12.0); Monocytes % 3.2 % (1.7-12.7); Neutrophils % 81.7 % (38.7-73.9); Platelet Count 304 T/CUMM (130-400); Red Blood Count 3.07 MC/CUMM (3.8-5.5); Red Cell Distribution Width 15.3 % (9.3-17.3); White Blood Count 12.8 T/CUMM (4-12)
[2020-06-05 06:21] LABS: Albumin 1.7 G/DL (3.4-5.0); Bilirubin,Total 1.1 MG/DL (0.2-1.0); Osmolality,Calculated 276.8 MOS/KG (273-304); Total Protein 6.5 G/DL (6.4-8.3)
[2020-06-05 06:34] LABS: Hypochromasia 1+; Microcytosis Slight; Ovalocytes Slight; Platelet Estimate Adequate
[2020-06-05] MEDS: ALBUTEROL/IPRATROPIUM 3 ML NEB RESP TX SCH ×3 (07:16→19:07)
[2020-06-05] MEDS: INSULIN LISPRO 100 UNIT/ML SUBCUT SCH ×4 (07:39→22:37)
[2020-06-05] MEDS: ARIPiprazole 10 MG TABLET PO SCH (09:46)
[2020-06-05] MEDS: GABAPENTIN 50 MG/ML 30 ML/BOTTLE PO SCH ×3 (09:46→22:09)
[2020-06-05] MEDS: levETIRAcetam LIQUID 100 MG/ML 30 ML/BOTTLE PO SCH ×2 (09:46→22:12)
[2020-06-05] MEDS: METOPROLOL TARTRATE 50 MG TABLET PO SCH ×2 (09:46→22:08)
[2020-06-05] MEDS: lamoTRIgine 100 MG TABLET PO SCH ×2 (09:46→22:08)
[2020-06-05] MEDS: TOPIRAMATE 100 MG TABLET PO SCH ×2 (09:46→22:08)
[2020-06-05] MEDS: MULTIVITAMIN LIQUID (CENTRUM) 60 ML BOTTLE PO SCH (09:46)
[2020-06-05] MEDS: MAGNESIUM CHLORIDE 64 MG TABLET PO SCH (09:46)
[2020-06-05] MEDS: FUROSEMIDE 40 MG/5 ML UDCUP PO SCH (09:46)
[2020-06-05] MEDS: DOCUSATE SODIUM 100 MG/10 ML UDCUP PO SCH ×2 (09:46→22:08)
[2020-06-05] MEDS: POLYETHYLENE GLYCOL POWDER 17 GM PACK PO SCH ×2 (09:46→22:07)
[2020-06-05] MEDS: SERTRALINE 100 MG TABLET PO SCH (09:47)
[2020-06-05] MEDS: VANCOMYCIN INJ 750 MG in SODIUM CHLORIDE 0.9% 250 ML IV SCH (21:30)
[2020-06-05] MEDS: FERROUS SULFATE 325 MG TABLET PO SCH (22:08)
[2020-06-05] MEDS: ENOXAPARIN 40 MG/0.4 ML SYRINGE SUBCUT SCH (22:10)
[2020-06-05] MEDS: ALBUMIN 25% 25 GM in PREMIX 1 EACH IV SCH (22:45)
[2020-06-06] MEDS: ALBUMIN 25% 25 GM in PREMIX 1 EACH IV SCH (05:30)
[2020-06-06] MEDS: methylPREDNISolone SOD SUC 40 MG/1 ML VIAL IV SCH ×3 (05:45→21:40)
[2020-06-06 05:48] LABS: Basophils % 0.1 % (0.0-0.8); Eosinophils % 0.2 % (0.00-10.9); Hematocrit 27.5 VOL% (35.7-47.0); Hemoglobin 8.4 GM/DL (12.0-16.0); Immature Granulocytes % 1.7 %; Immature Granulocytes Absolute 0.21 #; Lymphocytes # 1.5 10*3/uL (1.4-4.0); Lymphocytes % 11.9 % (21.3-54.2); Mean Corpuscular HGB Conc 30.5 GM/DL (32-36); Mean Corpuscular Volume 89.9 FL (87-102); Monocytes % 2.6 % (1.7-12.7); Neutrophils % 83.5 % (38.7-73.9); Platelet Count 506 T/CUMM (130-400); Red Blood Count 3.06 MC/CUMM (3.8-5.5); Red Cell Distribution Width 15.1 % (9.3-17.3); White Blood Count 12.2 T/CUMM (4-12)
[2020-06-06] MEDS: OMEPRAZOLE ODT 20 MG TABLET PO SCH (05:49)
[2020-06-06 06:07] LABS: Calcium 8.7 MG/DL (8.5-10.1); Osmolality,Calculated 275.8 MOS/KG (273-304)
[2020-06-06] MEDS: ALBUTEROL/IPRATROPIUM 3 ML NEB RESP TX SCH ×3 (08:09→19:14)
[2020-06-06] MEDS: INSULIN LISPRO 100 UNIT/ML SUBCUT SCH ×4 (08:12→21:39)
[2020-06-06] MEDS: MULTIVITAMIN LIQUID (CENTRUM) 60 ML BOTTLE PO SCH (09:00)
[2020-06-06] MEDS: ARIPiprazole 10 MG TABLET PO SCH (09:00)
[2020-06-06] MEDS: FERROUS SULFATE 325 MG TABLET PO SCH ×2 (09:00→21:40)
[2020-06-06] MEDS: DOCUSATE SODIUM 100 MG/10 ML UDCUP PO SCH ×2 (09:00→21:40)
[2020-06-06] MEDS: lamoTRIgine 100 MG TABLET PO SCH ×2 (09:09→21:39)
[2020-06-06] MEDS: FUROSEMIDE 40 MG/5 ML UDCUP PO SCH (09:09)
[2020-06-06] MEDS: levETIRAcetam LIQUID 100 MG/ML 30 ML/BOTTLE PO SCH ×3 (09:09→21:41)
[2020-06-06] MEDS: TOPIRAMATE 100 MG TABLET PO SCH ×2 (09:10→21:40)
[2020-06-06] MEDS: GABAPENTIN 50 MG/ML 30 ML/BOTTLE PO SCH ×4 (09:10→21:41)
[2020-06-06] MEDS: POLYETHYLENE GLYCOL POWDER 17 GM PACK PO SCH ×2 (09:10→21:40)
[2020-06-06] MEDS: METOPROLOL TARTRATE 50 MG TABLET PO SCH ×2 (09:10→21:40)
[2020-06-06] MEDS: SERTRALINE 100 MG TABLET PO SCH (09:10)
[2020-06-06] MEDS: MAGNESIUM CHLORIDE 64 MG TABLET PO SCH (09:10)
[2020-06-06] MEDS: DEXTROSE 5% 1,000 ML IV SCH (10:01)
[2020-06-06] MEDS: VANCOMYCIN INJ 750 MG in SODIUM CHLORIDE 0.9% 250 ML IV SCH (21:36)
[2020-06-06] MEDS: ENOXAPARIN 40 MG/0.4 ML SYRINGE SUBCUT SCH (21:40)
[2020-06-07 05:50] LABS: Basophils % 0.3 % (0.0-0.8); Eosinophils % 0.3 % (0.00-10.9); Hemoglobin 9.1 GM/DL (12.0-16.0); Immature Granulocytes % 2.1 %; Lymphocytes # 1.7 10*3/uL (1.4-4.0); Lymphocytes % 12.3 % (21.3-54.2); Mean Corpuscular HGB Conc 31.4 GM/DL (32-36); Mean Corpuscular Volume 89.5 FL (87-102); Mean Platelet Volume 10.7 FL (9.6-12.0); Monocytes % 3.4 % (1.7-12.7); Neutrophils % 81.6 % (38.7-73.9); Platelet Count 476 T/CUMM (130-400); Red Blood Count 3.24 MC/CUMM (3.8-5.5)
[2020-06-07] MEDS: methylPREDNISolone SOD SUC 40 MG/1 ML VIAL IV SCH ×3 (05:50→22:31)
[2020-06-07] MEDS: OMEPRAZOLE ODT 20 MG TABLET PO SCH (05:51)
[2020-06-07] MEDS: INSULIN LISPRO 100 UNIT/ML SUBCUT SCH ×4 (07:27→22:35)
[2020-06-07] MEDS: ALBUTEROL/IPRATROPIUM 3 ML NEB RESP TX SCH ×3 (07:38→22:00)
[2020-06-07] MEDS: MAGNESIUM CHLORIDE 64 MG TABLET PO SCH (09:12)
[2020-06-07] MEDS: lamoTRIgine 100 MG TABLET PO SCH ×2 (09:13→22:34)
[2020-06-07] MEDS: DOCUSATE SODIUM 100 MG/10 ML UDCUP PO SCH ×2 (09:13→22:35)
[2020-06-07] MEDS: TOPIRAMATE 100 MG TABLET PO SCH ×2 (09:13→22:35)
[2020-06-07] MEDS: POLYETHYLENE GLYCOL POWDER 17 GM PACK PO SCH ×2 (09:13→22:31)
[2020-06-07] MEDS: SERTRALINE 100 MG TABLET PO SCH (09:13)
[2020-06-07] MEDS: METOPROLOL TARTRATE 50 MG TABLET PO SCH ×2 (09:13→22:35)
[2020-06-07] MEDS: FUROSEMIDE 40 MG/5 ML UDCUP PO SCH (09:13)
[2020-06-07] MEDS: FERROUS SULFATE 325 MG TABLET PO SCH ×2 (09:13→22:35)
[2020-06-07] MEDS: ARIPiprazole 10 MG TABLET PO SCH (09:13)
[2020-06-07] MEDS: GABAPENTIN 50 MG/ML 30 ML/BOTTLE PO SCH ×3 (09:14→22:37)
[2020-06-07] MEDS: levETIRAcetam LIQUID 100 MG/ML 30 ML/BOTTLE PO SCH ×2 (09:14→22:40)
[2020-06-07] MEDS: MULTIVITAMIN LIQUID (CENTRUM) 60 ML BOTTLE PO SCH (09:14)
[2020-06-07] MEDS: ENOXAPARIN 40 MG/0.4 ML SYRINGE SUBCUT SCH (22:34)
[2020-06-07] MEDS: VANCOMYCIN INJ 750 MG in SODIUM CHLORIDE 0.9% 250 ML IV SCH (22:39)
[2020-06-08] MEDS: ALBUTEROL/IPRATROPIUM 3 ML NEB RESP TX SCH ×3 (07:15→19:08)
[2020-06-08] MEDS: methylPREDNISolone SOD SUC 40 MG/1 ML VIAL IV SCH ×3 (07:20→22:05)
[2020-06-08] MEDS: OMEPRAZOLE ODT 20 MG TABLET PO SCH (07:20)
[2020-06-08] MEDS: INSULIN LISPRO 100 UNIT/ML SUBCUT SCH ×4 (08:50→22:04)
[2020-06-08] MEDS: FUROSEMIDE 40 MG/5 ML UDCUP PO SCH (09:35)
[2020-06-08] MEDS: ARIPiprazole 10 MG TABLET PO SCH (09:38)
[2020-06-08] MEDS: lamoTRIgine 100 MG TABLET PO SCH ×2 (09:39→22:10)
[2020-06-08] MEDS: TOPIRAMATE 100 MG TABLET PO SCH ×2 (09:40→22:10)
[2020-06-08] MEDS: levETIRAcetam LIQUID 100 MG/ML 30 ML/BOTTLE PO SCH ×2 (09:40→22:13)
[2020-06-08] MEDS: METOPROLOL TARTRATE 50 MG TABLET PO SCH ×2 (09:40→22:13)
[2020-06-08] MEDS: SERTRALINE 100 MG TABLET PO SCH (09:40)
[2020-06-08] MEDS: GABAPENTIN 50 MG/ML 30 ML/BOTTLE PO SCH ×3 (09:41→22:11)
[2020-06-08] MEDS: MULTIVITAMIN LIQUID (CENTRUM) 60 ML BOTTLE PO SCH (09:41)
[2020-06-08] MEDS: FERROUS SULFATE 325 MG TABLET PO SCH ×2 (09:45→22:10)
[2020-06-08] MEDS: MAGNESIUM CHLORIDE 64 MG TABLET PO SCH (09:45)
[2020-06-08] MEDS: DOCUSATE SODIUM 100 MG/10 ML UDCUP PO SCH ×2 (09:48→22:12)
[2020-06-08] MEDS: POLYETHYLENE GLYCOL POWDER 17 GM PACK PO SCH ×2 (09:48→22:12)
[2020-06-08] MEDS: VANCOMYCIN INJ 750 MG in SODIUM CHLORIDE 0.9% 250 ML IV SCH (22:06)
[2020-06-08] MEDS: ENOXAPARIN 40 MG/0.4 ML SYRINGE SUBCUT SCH (22:13)
[2020-06-09 04:50] LABS: Basophils % 0.1 % (0.0-0.8); Eosinophils % 0.2 % (0.00-10.9); Hematocrit 31.4 VOL% (35.7-47.0); Hemoglobin 9.6 GM/DL (12.0-16.0); Immature Granulocytes % 1.4 %; Immature Granulocytes Absolute 0.19 #; Lymphocytes # 1.8 10*3/uL (1.4-4.0); Lymphocytes % 13.1 % (21.3-54.2); Mean Corpuscular HGB Conc 30.6 GM/DL (32-36); Mean Corpuscular Volume 89.2 FL (87-102); Mean Platelet Volume 10.1 FL (9.6-12.0); Neutrophils % 82.2 % (38.7-73.9); Platelet Count 472 T/CUMM (130-400); Red Blood Count 3.52 MC/CUMM (3.8-5.5); Red Cell Distribution Width 15.3 % (9.3-17.3); White Blood Count 13.4 T/CUMM (4-12)
[2020-06-09 05:08] LABS: Calcium 8.8 MG/DL (8.5-10.1); Osmolality,Calculated 287.5 MOS/KG (273-304)
[2020-06-09] MEDS: methylPREDNISolone SOD SUC 40 MG/1 ML VIAL IV SCH (05:44)
[2020-06-09] MEDS: OMEPRAZOLE ODT 20 MG TABLET PO SCH (05:45)
[2020-06-09] MEDS: ALBUTEROL/IPRATROPIUM 3 ML NEB RESP TX SCH (07:28)
[2020-06-09] MEDS: INSULIN LISPRO 100 UNIT/ML SUBCUT SCH (07:48)
[2020-06-09 08:18] VITALS: BP 128/58
[2020-06-09] MEDS: POLYETHYLENE GLYCOL POWDER 17 GM PACK PO SCH (09:11)
[2020-06-09] MEDS: GABAPENTIN 50 MG/ML 30 ML/BOTTLE PO SCH (09:11)
[2020-06-09] MEDS: levETIRAcetam LIQUID 100 MG/ML 30 ML/BOTTLE PO SCH (09:11)
[2020-06-09] MEDS: MULTIVITAMIN LIQUID (CENTRUM) 60 ML BOTTLE PO SCH (09:11)
[2020-06-09] MEDS: MAGNESIUM CHLORIDE 64 MG TABLET PO SCH (09:11)
[2020-06-09] MEDS: SERTRALINE 100 MG TABLET PO SCH (09:11)
[2020-06-09] MEDS: FUROSEMIDE 40 MG/5 ML UDCUP PO SCH (09:11)
[2020-06-09] MEDS: DOCUSATE SODIUM 100 MG/10 ML UDCUP PO SCH (09:11)
[2020-06-09] MEDS: METOPROLOL TARTRATE 50 MG TABLET PO SCH (09:12)
[2020-06-09] MEDS: lamoTRIgine 100 MG TABLET PO SCH (09:12)
[2020-06-09] MEDS: ARIPiprazole 10 MG TABLET PO SCH (09:12)
[2020-06-09] MEDS: FERROUS SULFATE 325 MG TABLET PO SCH (09:12)
[2020-06-09] MEDS: TOPIRAMATE 100 MG TABLET PO SCH (09:12)
== END 2020-06-09 11:40 | DRG 871 ==
LOC: N.ED 12:18 → N.EDINP 13:30 → N.5E 14:54
PROVIDERS: ADMIT Internal Medicine; ATTEND Internal Medicine